=== PATIENT | male | born 1965 | race Caucasian/White ===

== ENCOUNTER → 2016-09-13 | Outpatient (CLI) | payer BC ==
[~2016-09-13] MED LIST: ACET-749 PO; ALFU10TA30 PO; ASPI81TA28 PO; CHOLCAP5 PO; CIPR-255 PO; CLB/200 PO; LEVO150T PO; LISI2.5T5 PO; LPT/40 PO; MULT-506 PO; PHEN-775 PO; RANI150T3 PO; SERT-234 PO; TRVHP PO; VALA500T60 PO
--- NOTE | 2016-09-13 18:40 | DIAGNOSTIC IMAGING REPORT ---
RIGHT SHOULDER MIN 2 VIEWS ROUTINE CLINICAL HISTORY: Right shoulder pain. COMPARISON: None FINDINGS: Alignment of the right shoulder is anatomic. There is no fracture or suspicious lesion. There is mild to moderate arthritis of the right acromioclavicular joint. IMPRESSION: 1. Mild to moderate arthritis of the right acromioclavicular joint. 2. No fracture. Electronically signed by: Conrad Almanzar M.D. 09/13/2016 6:39 PM Dictated Date/Time: 09/13/2016 6:39 PM
--- NOTE | 2016-09-13 19:17 | DIAGNOSTIC IMAGING REPORT ---
C-SPINE ROUTINE 4 OR 5 VIEWS CLINICAL HISTORY: Right shoulder pain. Neck pain with radiculopathy. COMPARISON STUDY: No previous studies for comparison. FINDINGS: There is straightening of the normal cervical lordosis. Vertebral body heights are maintained. There is no fracture or suspicious lesion. There is mild to moderate disc space narrowing at several levels, most pronounced at the C5-C6 and C6-C7 levels. There is mild multilevel facet arthrosis. IMPRESSION: 1. No cervical spine fracture. 2. Moderate multilevel degenerative disc disease and mild multilevel facet arthrosis of the cervical spine. Electronically signed by: Conrad Almanzar M.D. 09/13/2016 7:16 PM Dictated Date/Time: 09/13/2016 7:15 PM
== END | disposition home or self-care (01) ==
LOC: C.RAD 17:57
PROVIDERS: ATTEND Internal Medicine
DX: M25.511 Pain in right shoulder (principal); M54.12 Radiculopathy, cervical region; M50.30 Other cervical disc degeneration, unspecified cervical region; M19.011 Primary osteoarthritis, right shoulder

== ENCOUNTER → 2016-10-04 | Outpatient (CLI) | payer BC ==
--- NOTE | 2016-10-04 09:30 | DIAGNOSTIC IMAGING REPORT ---
ULTRASOUND KIDNEYS AND BLADDER CLINICAL HISTORY: Bladder diverticulum. COMPARISON STUDY: No priors. TECHNIQUE: Real-time, grayscale, and color flow sonography of the kidneys and bladder is performed. Images are reviewed in the transverse and longitudinal planes. FINDINGS: Kidneys: The kidneys are normal in size and echotexture. The right kidney measures 10.6 x 5.5 x 6.1 cm and the left kidney measures 11.4 x 6.6 x 6.3 cm. There is no hydronephrosis. No shadowing renal calculi are identified. Subcentimeter cysts are noted bilaterally. There is no sonographic evidence of solid renal mass. No perinephric fluid is identified. Bladder: The bladder is distended and the wall appears slightly trabeculated. There are at least 2 posteriorly oriented bladder diverticula which measure up to 4 cm. Bilateral ureteral jets were seen. IMPRESSION: 1. The kidneys are normal in size and without hydronephrosis. 2. The bladder wall appears mildly trabeculated and there are at least 2 posteriorly oriented bladder diverticula. The appearance suggests the sequelae of chronic outlet obstruction. Electronically signed by: Wolfgang Martins M.D. 10/04/2016 9:29 AM Dictated Date/Time: 10/04/2016 9:26 AM
== END | disposition home or self-care (01) ==
LOC: C.ULTR 08:50
PROVIDERS: ATTEND Urology
DX: N32.3 Diverticulum of bladder (principal)

== ENCOUNTER → 2016-11-11 | Day surgery (SDC) | payer BC ==
--- NOTE | 2016-11-01 11:40 | DIAGNOSTIC IMAGING REPORT ---
CHEST 2 VIEWS ROUTINE CLINICAL HISTORY: N40.1 Benign prostatic hypertrophy with urinary [id number] PREOPERATIVE CHEST COMPARISON STUDY: No previous studies for comparison. FINDINGS: The heart is borderline enlarged. There is no failure. There is no focal pulmonary consolidation. There are no pleural effusions.[ IMPRESSION: No active disease in the chest. Electronically signed by: Jaguar Guzman M.D. 11/01/2016 11:39 AM Dictated Date/Time: 11/01/2016 11:39 AM
[2016-11-01 12:03] LABS: BASO % 0.2 %; BASO ABS # 0.01 K/uL (0-0.2); COMPLETE YES; EOS % 2.5 %; HEMATOCRIT 40.7 % (42-52); IG% 0.2 %; LYMPH % 24.5 %; LYMPH ABS # 1.49 K/uL (1.2-3.4); MEAN CELL VOLUME 91.7 fL (80-100); MEAN CORPUSCULAR HEMOGLOBIN 30.9 pg (25-34); MEAN CORPUSCULAR HGB CONC 33.7 g/dl (32-36); MEAN PLATELET VOLUME 10.3 fL (7.4-10.4); MONO % 7.7 %; NEUT % 64.9 %; PLATELET COUNT 106 K/uL (130-400); RED BLOOD COUNT 4.44 M/uL (4.7-6.1); WHITE BLOOD COUNT 6.08 K/uL (4.8-10.8)
[2016-11-01 12:36] LABS: BLOOD UREA NITROGEN 16 mg/dl (7-18); BUN/CREATININE RATIO 17.3 (10-20); CALCIUM 8.8 mg/dl (8.5-10.1); CARBON DIOXIDE 31 mmol/L (21-32); CHLORIDE 106 mmol/L (98-107); CREATININE 0.94 mg/dl (0.60-1.40); GLUCOSE 83 mg/dl (70-99); POTASSIUM 4.4 mmol/L (3.5-5.1); SODIUM 143 mmol/L (136-145)
[2016-11-01 16:35] VITALS: BMI 26.0
[~2016-11-11] VITALS: Ht 182.9 cm; Wt 86.4 kg
[~2016-11-11] MED LIST changes: +ACETAMINOPHEN 325 MG TAB PO PRN; +ALFU10TA2 PO; -ALFU10TA30 PO; +ATROPINE SULFATE 0.1 MG/ML 5ML SYR IV PRN; +CHECK SCOPOLAMINE PATCH PLACEMENT SCH; +CIPROFLOXACIN / D5W 400 MG IV SCH; +CONRAY 30% 150ML BOTTLE ONE; +DEXAMETHASONE SOD INJ 4 MG/ML VIAL ONE; +EpHEDrine SULFATE INJ 50 MG/ML AMP IV PRN; +FENTANYL CITRATE INJ 50 MCG/1 ML 2 ML VIAL IV PRN; +FENTANYL CITRATE INJ 50 MCG/1 ML 2 ML VIAL ONE; +HYDROCODONE/ACETAMOPHEN 5/325MG TAB PO PRN; +LACTATED RINGER'S 1000ML 1,000 ML IV SCH; +LIDOCAINE HCL 2% 2 ML VIAL (20MG/ML) ONE; +MIDAZOLAM HCL 1 MG/ML 2ML VIAL ONE; +NURSING VERBAL MED ORDER ONE; +ONDANSETRON INJ 2 MG/ML 2 ML VIAL IV PRN; +ONDANSETRON INJ 2 MG/ML 2 ML VIAL ONE; +PROPOFOL IV EMULSION 10 MG/ML 20 ML VIAL IV ONE; +SCOPOLAMINE 1.5 MG TDSY TD ONE; +SCOPOLAMINE 1.5 MG TDSY TD SCH; +SODIUM CHLORIDE 0.9% 1000ML 1,000 ML IV SCH
[2016-11-11 05:35] VITALS: BP 127/87; PULSE 57; TEMP 36.6; O2SAT 96; Ht 182.9 cm; Wt 86.4 kg
--- NOTE | 2016-11-11 06:57 | History & Physical Bridge Note ---
H&P Re-Evaluation Bridge Note: I have examined the patient, reviewed the History & Physical and in the interval since the performance of the History & Physical I have noted the following changes of clinical significance: No changes noted
--- NOTE | 2016-11-11 07:49 | [facility] Post Operative Brief Note ---
Immediate Operative Summary Operative Date Nov 11, 2016. Pre-Operative Diagnosis Bladder Stones, Diverticulum of Bladder, Benign Prostatic Hypertrophy Post-Operative Diagnosis Bladder Stones, Diverticulum of Bladder, Benign Prostatic Hypertrophy Procedure(s) Performed Cystoscopy, Transuretheral Incision of Prostate, Cystolithopaxy Surgeon Dr. Piña [employer] Surgeon(s) none Estimated Blood Loss 5 cc Findings Very high bladder neck; diverticulum on the posterior wall of the bladder. Relatively large stone within the diverticulum (extracted). Incisions of the bladder neck at 5 and 7 O'Clock. Vaporization of the tissue between the incisions and slight vaporization of the apical tissue. Specimens A: Bladder stone for chemical analysis Drains 20F coude Anesthesia Gen Complication(s) None Disposition Recovery Room / PACU (stable)
--- NOTE | 2016-11-11 07:55 | Discharge Instructions ---
Discharge Instructions Date of Service Nov 11, 2016. Admission Reason for Admission: Bladder Stones, Benign Prostatic Hypertrophy Discharge Discharge Diagnosis / Problem: Bladder stones; diverticulum; BPH Discharge Goals Goal(s): Decrease discomfort, Improve function, Increase independence, Improve disease control Activity Recommendations Activity Limitations: resume your previous activity Lifting Limitations: none Exercise/Sports Limitations: none May Resume Sexual Activity: when tolerated Shower/Bathe: no limitations Driving or Machine Use: no limitations (as long as you are off of pain meds) . Instructions / Follow-Up Instructions / Follow-Up You have an appointment to have your catheter removed on Monday in Dr. Piña' s office. If you would rather, you can remove your catheter at home tomorrow morning. The easiest way to do this is to cut off the small port that sticks off of the side of the catheter (the area not attached to the bag). You should see some clear water drain from this. When there is no further drainage, you can gently pull the catheter straight out. If you elect to remove your catheter, please drink significant amounts of water. It is not unusual to have to urine frequently and in small volumes after this catheter is removed. It is also quite common to see blood in your urine. Discharge Diet Recommended Diet: Regular Diet Procedures Procedures Performed: Cystoscopy, Transuretheral Incision of Prostate, Cystolithopaxy Pending Studies Studies pending at discharge: no Medical Emergencies . Who to Call and When: Medical Emergencies: If at any time you feel your situation is an emergency, please call 911 immediately. . Non-Emergent Contact Non-Emergency issues call your: Urologist Call Non-Emergent contact if: you have a fever, temperature is above 101.5, your pain is not controlled, your pain is worsening . . "Provider Documentation" section prepared by Anibal Brown. VTE Core Measure Inpt VTE Proph given/why not?: Treatment not indicated [place] Drug Monitoring Program Search Results: patient reviewed within database, no issues identified
--- NOTE | 2016-11-11 08:18 | Anesthesiology Progress Note ---
Anesthesia Post Op Note Date & Time Nov 11, 2016 at 08:17 Vital Signs Pain Intensity: 0 Vital Signs Past 12 Hours Date Time Temp Pulse Resp B/P Pulse Ox O2 Delivery O2 Flow Rate FiO2 11/11/16 08:05 56 17 100/80 97 Mask 10 11/11/16 07:55 54 12 108/73 98 Mask 10 11/11/16 07:46 36.1 56 14 104/64 97 Mask 10 11/11/16 05:35 36.6 57 18 127/87 96 Room Air Notes Mental Status: alert / awake / arousable, participated in evaluation Pt Amnestic to Procedure: Yes Nausea / Vomiting: adequately controlled Pain: adequately controlled Airway Patency, RR, SpO2: stable & adequate BP & HR: stable & adequate Hydration State: stable & adequate Anesthetic Complications: no major complications apparent
--- NOTE | 2016-11-11 08:25 | OPERATIVE REPORT ---
DATE OF OPERATION: 11/11/2016 PREOPERATIVE DIAGNOSES: Benign prostatic hypertrophy, bladder stones, and bladder diverticula. POSTOPERATIVE DIAGNOSES: Same. PROCEDURES PERFORMED: Cystoscopy, cystolitholapaxy, transurethral incision and resection of prostate. ANESTHESIA: General. ESTIMATED BLOOD LOSS: 5 mL. URINE OUTPUT: Not recorded. SPECIMENS: Stone for chemical analysis. DRAINS: 20-[place] Coude catheter. DESCRIPTION OF THE PROCEDURE: Nain Regalado was identified in the preoperative holding area. Appropriate informed consents reviewed and completed and the patient was transported to the operating suite. Upon arrival, he received appropriate preoperative antibiotics in the form of ciprofloxacin. Adequate general anesthesia was achieved and the patient was placed in dorsal lithotomy position, where he was sterilely prepped and draped in standard fashion. I began the case by passing a 27-[place] resectoscope with visual obturator and 30 degree lens. Inspection of the urethra revealed no evidence of stricture disease. Prostate was notably enlarged with a very high bladder neck. Additionally, he had significant lateral lobe hypertrophy, but no significant intravesical lobe. Full inspection of the bladder was carried out. There was a large bladder with moderate trabeculation and a very narrow mouth diverticulum on the posterior wall just to the patient's left of midline. Inspection internally of this diverticulum revealed 2-3 stones within the tic itself. Small stones were easily irrigated out of the diverticulum; however, the large stone would not be able to be irrigated through the scope. After inspecting the remaining part of the bladder and irrigating another small stone, I exchanged the visual obturator for a stone grasping forceps and I was able to gently guide this into the diverticulum and grasped the stone and withdrawn into the bladder. I then was able to reorient it and withdrawn. The stone was passed off the table as a specimen. I then reentered the bladder with a resecting element including the button electrode. I performed an excision of the bladder neck at 5 o'clock and 7 o'clock, which significantly dropped the bladder neck down. He still had significant lateral lobe hypertrophy including a very tight apical dissection of the prostate. I gently opened the apical aspect of the prostate and tried to avoid excess resection of the bladder neck. I did slightly flatten the bladder neck between my 2 incisions to allow easy accommodation of the scope and in turn likely easier voiding. At the conclusion of the case, there was excellent hemostasis. A 20-[place] straight catheter was inserted; however, I believe it was directed directly into the diverticulum. I therefore exchanged this for a Coude catheter, which I felt more comfortable I could deviate away from the diverticulum. The balloon was inflated and the case concluded. The patient was extubated and taken to the PACU in stable condition. I attest to the content of the Intraoperative Record and any orders documented therein. Any exceptions are noted below. ELIZABETHD
[2016-11-11 08:38] VITALS: BP 115/83; PULSE 60; TEMP 36.4; O2SAT 97
[2016-11-11 09:04] VITALS: BP 128/83; PULSE 56; TEMP 36.7; O2SAT 96
[2016-11-11 09:31] VITALS: BP 125/89; PULSE 58; TEMP 36.4; O2SAT 96
== END | disposition home or self-care (01) ==
LOC: C.ACU 05:26
PROVIDERS: ATTEND Urology
DX: N21.0 Calculus in bladder (principal); N40.1 Benign prostatic hyperplasia with lower urinary tract symptoms; N13.8 Other obstructive and reflux uropathy; N32.3 Diverticulum of bladder; R33.9 Retention of urine, unspecified; M19.90 Unspecified osteoarthritis, unspecified site; E11.9 Type 2 diabetes mellitus without complications; N45.1 Epididymitis; E78.00 Pure hypercholesterolemia, unspecified; I10 Essential (primary) hypertension; Z83.3 Family history of diabetes mellitus; Z80.42 Family history of malignant neoplasm of prostate; Z82.49 Family history of ischemic heart disease and other diseases of the circulatory system

== ENCOUNTER → 2016-12-16 | Outpatient (CLI) | payer BC ==
[~2016-12-16] MED LIST changes: -ACETAMINOPHEN 325 MG TAB PO PRN; -ATROPINE SULFATE 0.1 MG/ML 5ML SYR IV PRN; -CHECK SCOPOLAMINE PATCH PLACEMENT SCH; -CIPROFLOXACIN / D5W 400 MG IV SCH; -CONRAY 30% 150ML BOTTLE ONE; -DEXAMETHASONE SOD INJ 4 MG/ML VIAL ONE; -EpHEDrine SULFATE INJ 50 MG/ML AMP IV PRN; -FENTANYL CITRATE INJ 50 MCG/1 ML 2 ML VIAL IV PRN; -FENTANYL CITRATE INJ 50 MCG/1 ML 2 ML VIAL ONE; -HYDROCODONE/ACETAMOPHEN 5/325MG TAB PO PRN; -LACTATED RINGER'S 1000ML 1,000 ML IV SCH; -LIDOCAINE HCL 2% 2 ML VIAL (20MG/ML) ONE; -MIDAZOLAM HCL 1 MG/ML 2ML VIAL ONE; -NURSING VERBAL MED ORDER ONE; -ONDANSETRON INJ 2 MG/ML 2 ML VIAL IV PRN; -ONDANSETRON INJ 2 MG/ML 2 ML VIAL ONE; -PHEN-775 PO; -PROPOFOL IV EMULSION 10 MG/ML 20 ML VIAL IV ONE; -SCOPOLAMINE 1.5 MG TDSY TD ONE; -SCOPOLAMINE 1.5 MG TDSY TD SCH; -SODIUM CHLORIDE 0.9% 1000ML 1,000 ML IV SCH
[2016-12-16 09:44] LABS: ALT/SGPT 48 U/L (12-78); AST/SGOT 39 U/L (15-37); BLOOD UREA NITROGEN 28 mg/dl (7-18); BUN/CREATININE RATIO 22.9 (10-20); CALCIUM 8.6 mg/dl (8.5-10.1); CARBON DIOXIDE 28 mmol/L (21-32); CHLORIDE 105 mmol/L (98-107); CHOLESTEROL 136 mg/dl (0-200); GLUCOSE 92 mg/dl (70-99); POTASSIUM 3.9 mmol/L (3.5-5.1); SODIUM 140 mmol/L (136-145)
[2016-12-16 09:55] LABS: ALB/GLOB RATIO 1.5 (0.9-2); ALKALINE PHOSPHATASE 86 U/L (45-117); CHOLESTEROL/HDL RATIO 3.8; HDL CHOLESTEROL 36 mg/dl; LDL CHOLESTEROL CALCULATED 68 mg/dl; TRIGLYCERIDES 158 mg/dl (0-150); VERY LOW DENSITY LIPOPROT CALC 32 mg/dl
== END | disposition home or self-care (01) ==
LOC: C.LAB 07:18
PROVIDERS: ATTEND Internal Medicine
DX: I10 Essential (primary) hypertension (principal); E78.5 Hyperlipidemia, unspecified; E03.9 Hypothyroidism, unspecified

== ENCOUNTER → 2016-12-28 | Outpatient (CLI) | payer BC | END | disposition home or self-care (01) | LOC: C.LAB 16:49 | PROVIDERS: ATTEND Nurse Practitioner Adult Health | DX: R35.0 Frequency of micturition (principal) ==

== ENCOUNTER → 2017-05-15 | Outpatient (CLI) | payer BC ==
[~2017-05-15] MED LIST changes: -ACET-749 PO; -ALFU10TA2 PO; +ALFU10TA30 PO
[2017-05-15 19:45] LABS: ALT/SGPT 40 U/L (12-78); BLOOD UREA NITROGEN 18 mg/dl (7-18); BUN/CREATININE RATIO 17.8 (10-20); CALCIUM 8.8 mg/dl (8.5-10.1); CARBON DIOXIDE 26 mmol/L (21-32); CHLORIDE 106 mmol/L (98-107); CREATININE 1.03 mg/dl (0.60-1.40); GLUCOSE 87 mg/dl (70-99); POTASSIUM 3.8 mmol/L (3.5-5.1); SODIUM 140 mmol/L (136-145)
[2017-05-15 19:56] LABS: ALB/GLOB RATIO 1.2 (0.9-2); ALKALINE PHOSPHATASE 78 U/L (45-117); AST/SGOT 37 U/L (15-37); THYROID STIMULATING HORMONE 0.222 uIu/ml (0.300-4.500)
== END | disposition home or self-care (01) ==
LOC: C.LAB 18:59
PROVIDERS: ATTEND Internal Medicine
DX: E03.9 Hypothyroidism, unspecified (principal); I10 Essential (primary) hypertension; E78.5 Hyperlipidemia, unspecified

== ENCOUNTER → 2017-12-08 | Outpatient (CLI) | payer BC ==
[~2017-12-08] MED LIST changes: +ALFU10TA2 PO; -ALFU10TA30 PO; +LISI-1116 PO; -LISI2.5T5 PO
[2017-12-08 14:39] LABS: HEMATOCRIT 43.1 % (42-52); HEMOGLOBIN 14.5 g/dL (14.0-18.0); MEAN CELL VOLUME 92.1 fL (80-100); MEAN CORPUSCULAR HGB CONC 33.6 g/dl (32-36); MEAN PLATELET VOLUME 9.9 fL (7.4-10.4); PLATELET COUNT 138 K/uL (130-400); RED CELL DISTRIBUTION WIDTH CV 13.5 % (11.5-14.5); RED CELL DISTRIBUTION WIDTH SD 45.3 fL (36.4-46.3); WHITE BLOOD COUNT 5.84 K/uL (4.8-10.8)
[2017-12-08 14:54] LABS: ALBUMIN 3.8 gm/dl (3.4-5.0); ALT/SGPT 35 U/L (12-78); AST/SGOT 25 U/L (15-37); BLOOD UREA NITROGEN 14 mg/dl (7-18); CALCIUM 8.6 mg/dl (8.5-10.1); CARBON DIOXIDE 31 mmol/L (21-32); CREATININE 0.99 mg/dl (0.60-1.40); GLUCOSE 82 mg/dl (70-99); POTASSIUM 4.3 mmol/L (3.5-5.1); SODIUM 140 mmol/L (136-145)
[2017-12-08 15:02] LABS: ALKALINE PHOSPHATASE 76 U/L (45-117); CHOLESTEROL 112 mg/dl (0-200); LDL CHOLESTEROL CALCULATED 41 mg/dl
== END | disposition home or self-care (01) ==
LOC: C.LAB 12:59
PROVIDERS: ATTEND Internal Medicine
DX: E78.5 Hyperlipidemia, unspecified (principal); E03.9 Hypothyroidism, unspecified; E55.9 Vitamin D deficiency, unspecified; N40.1 Benign prostatic hyperplasia with lower urinary tract symptoms; K21.9 Gastro-esophageal reflux disease without esophagitis

== ENCOUNTER → 2018-03-05 | Outpatient (CLI) | payer BC ==
[~2018-03-05] MED LIST changes: -ALFU10TA2 PO; +ASPCH81X PO; -ASPI81TA28 PO; +BUPR-79 PO; +CHOL1TAB46 PO; -CHOLCAP5 PO; -CIPR-255 PO; -CLB/200 PO; +ESCI10TA17 PO; -LEVO150T PO; +LEVO175T3 PO; -LISI-1116 PO; +LISI-461 PO; -LPT/40 PO; +MISCCAP80 PO; -MULT-506 PO; -RANI150T3 PO; +RANI150T85 PO; +ROSU40TA PO; -SERT-234 PO; +TADALAFIL PO
[2018-03-05 19:53] LABS: ALBUMIN 3.7 gm/dl (3.4-5.0); ALKALINE PHOSPHATASE 96 U/L (45-117); ALT/SGPT 41 U/L (12-78); AST/SGOT 34 U/L (15-37); BLOOD UREA NITROGEN 15 mg/dl (7-18); CALCIUM 8.2 mg/dl (8.5-10.1); CARBON DIOXIDE 31 mmol/L (21-32); CREATININE 1.15 mg/dl (0.60-1.40); POTASSIUM 4.1 mmol/L (3.5-5.1); SODIUM 140 mmol/L (136-145); TOTAL PROTEIN 7.1 gm/dl (6.4-8.2)
[2018-03-05 19:54] LABS: GLUCOSE 95 mg/dl (70-99)
== END | disposition home or self-care (01) ==
LOC: C.LAB 19:06
PROVIDERS: ATTEND Internal Medicine
DX: E03.9 Hypothyroidism, unspecified (principal); E55.9 Vitamin D deficiency, unspecified; I10 Essential (primary) hypertension; E78.5 Hyperlipidemia, unspecified

== ENCOUNTER → 2018-03-12 | Outpatient (CLI) | payer BC ==
--- NOTE | 2018-03-12 14:42 | DIAGNOSTIC IMAGING REPORT ---
CHEST 2 VIEWS ROUTINE CLINICAL HISTORY: COUGH,WHEEZING dyspnea COMPARISON STUDY: 11/01/2016 FINDINGS: The bones soft tissues and hemidiaphragms are normal. The cardiomediastinal silhouette is normal. The lungs are clear. The pulmonary vasculature is normal. IMPRESSION: Negative chest. The above report was generated using voice recognition software. It may contain grammatical, syntax or spelling errors. Electronically signed by: Lenin Cotter M.D. 03/12/2018 2:41 PM Dictated Date/Time: 03/12/2018 2:41 PM
== END | disposition home or self-care (01) ==
LOC: C.RAD 14:19
PROVIDERS: ATTEND Internal Medicine
DX: R05 Cough (principal); R06.2 Wheezing; R07.1 Chest pain on breathing

== ENCOUNTER 2024-02-08 07:38 | Observation (INO) ==
--- NOTE | 2024-02-08 07:57 | Emergency Department Note ---
Impression & Plan TIA (transient ischemic attack), HTN (hypertension), Paresthesias, High serum chloride ED Provider Note NAME: DIMA BAPTISTE AGE: 58 SEX: M : 1965 ARRIVES VIA: Walk-In INFORMANT: Patient ED PROVIDER(S): Domenico Lew DO CHIEF COMPLAINT: HTN HPI: Patient is a 58-year-old male with a past medical history of diabetes, hypertension and hyperlipidemia who presents to the ER for left facial numbness and left arm numbness. This occurred earlier in the week and lasted for about 2 to 3 hours. He was seen evaluated and discharged from the ER at [facility]. It recurred this morning and has been present for over an hour. He denies any weakness that is noticeable. No change or loss in vision. No chest pain or shortness of breath. No nausea, vomiting, or diarrhea. No dysuria, urgency or frequency. Does have an extensive family history of MIs. No previous strokes. No other exacerbating or remitting factors. He was seen and evaluated by his PCP who does believe that he had a TIA as well and is attempting to get the outpatient workup including MRI. ADDITIONAL HISTORY OBTAINED: Per HPI Chronic Medical/Social Conditions Affecting Care: Per HPI PAST MEDICAL HISTORY:See Below PAST SURGICAL HISTORY:See Below FAMILY HISTORY:See Below SOCIAL HISTORY:See Below HOME MEDICATIONS:See Below ALLERGIES:See Below VITALS:See Below PHYSICAL EXAMINATION: GENERAL: Sitting up in bed, alert, well appearing, well nourished, no distress, non-toxic EYE EXAM: normal conjunctiva. PERRL and EOM's intact. OROPHARYNX: mucous membranes are moist LUNGS: Clear to auscultation. Normal chest wall mechanics HEART: no murmurs, S1 normal and S2 normal ABDOMEN: abdomen soft, non-tender, normo-active bowel sounds, no masses, no rebound or guarding. UPPER EXTREMITIES: upper extremities are grossly normal. LOWER EXTREMITIES: No pitting edema. NEURO EXAM: Normal sensorium, cranial nerves II-XII intact, normal speech, no weakness of arms, no weakness of legs. No drift. Finger to nose intact. Gross sensation intact. [id number] intact. Rapid alternating movements of upper extremities are intact. MEDICAL DECISION MAKING: Patient is a 58-year-old male who presents ER for above-stated complaint. IV was established blood work is obtained. Patient has extensive vascular risk factors including hypertension, hyperlipidemia and diabetes. Strong family history of [place] as well in the setting of paresthesias in the left side of his face and hand. Labs show no significant leukocytosis or anemia. INR unremarkable. BMP with slightly elevated chloride. Bilirubin mag and troponin were negative. He is completely neurologically intact with the exception of the subjective paresthesias. CT angios of the head and neck were negative. I discussed the case with hospitalist for further evaluation management and treatment with his current presentation and risk factors do feel it is prudent to work this up more at this time. Discussed with the hospitalist and patient was admitted for further workup. Stroke alert was not called as patient had no focal deficit and was not a tPA candidate. Consults/Care Managements Discussions: Per [facility] Triage Nursing notes reviewed. Limited review of prior medical records performed Vital Signs: reviewed and remarkable for HTN Differential diagnosis: Differential Diagnosis includes but is not limited to ischemic Stroke, hemorrhagic stroke, bells palsy, mass, neoplasm, migraine headache, seizure, subarachnoid hemorrhage, TIA, and transient global amnesia. ER treatment provided: See below Diagnostics interpreted by me include EKG and cardiac monitoring as listed below: -Cardiac Monitoring: An order was placed for continuous cardiac monitoring. The monitor shows a rate of 60 with sinus rhythm. -ECG: Sinus rhythm at 65 Normal axis No PVCs QTc 445 -Laboratory studies:Interpreted by me as stated above in MDM and shown below. Imaging studies: Xrays: As interpreted by me:none CTs show: CT of the head per my preliminary interpretation showed no obvious large bleed CT angio of the head and neck were negative Procedures:none Critical Care: None Past Med/Surg History Problem List (Updated 02/08/24 @ 13:28 by Domenico Lew DO) High serum chloride (Acute) Paresthesias (Acute) HTN (hypertension) (Acute) TIA (transient ischemic attack) (Acute) Left upper extremity numbness (Acute) Facial numbness (Acute) Hypertension (Acute) History of bladder stone (Acute) Hypercholesterolemia (Acute) Organic impotence (Acute) History of urinary frequency (Acute) Encounter for pre-operative examination Priapism, drug-induced (Acute) Sexual dysfunction Incontinence Medical History (Updated 02/08/24 @ 13:28 by Domenico Lew DO) Abdominal pain Diverticulitis of colon with perforation Encounter for pre-operative examination Diverticulitis of both large and small intestine with perforation Arthritis Benign localized hyperplasia of prostate with urinary obstruction Diabetes mellitus Diverticulum of bladder Epididymitis Hypothyroidism BPH (benign prostatic hyperplasia) Urinary incontinence Diabetes mellitus, type 2 oral meds discontinued after weight loss; diet controlled Chronic back pain GERD (gastroesophageal reflux disease) Depression Anxiety Hyperlipidemia Hypertension Surgical History History of esophagogastroduodenoscopy (EGD) History of colonoscopy History of cardiac cath 2008-NO STENTS NEEDED-NO CARDIOLOGY History of carpal tunnel release R/L H/O foot surgery RIGHT SPUR H/O eye surgery MUSCLE History of cystoscopy multiple; cysto, injection of urethral bulking agent: 01/01/19: MAC sedation at [facility] Family History Sister Family history of diabetes mellitus Brother Family history of diabetes mellitus Other Diabetes mellitus, type 2 Social History Smoking Status: Never smoker Cigarettes Per Day: 0; Second Hand Exposure: No; Do You Dip or Chew Tobacco: No; Hx Alcohol Use: No Hx Substance Use: No Preferred Language: Malagasy Communication Ability: Effective Visual Impairment: No Limitations Karate Black Belt Required: No Beliefs That Will Affect Care: Cultural Current Living Situation: Alone Feels Safe at Home: Yes Assistive Devices: None Allergies Allergies Allergy/AdvReac Type Severity Reaction Status Date / Time No Known Allergies Allergy Verified 02/08/24 09:24 Home Meds Home Medications Medication Instructions Recorded Confirmed levothyroxine 175 mcg tablet 175 mcg PO QAM 09/20/18 02/08/24 rosuvastatin 40 mg tablet 40 mg PO QPM 09/20/18 02/08/24 valacyclovir 500 mg tablet 500 mg PO QPM 09/20/18 02/08/24 (Valtrex) vortioxetine 5 mg tablet 5 mg PO QAM 06/21/19 02/08/24 (Trintellix) emtricitabine 200 mg-tenofovir 1 tab PO QPM 09/18/20 02/08/24 alafenamide fumarate 25 mg tablet (Descovy) omeprazole 20 mg capsule,delayed 20 mg PO DAILYBB 09/18/20 02/08/24 release cholecalciferol (vitamin D3) 125 10,000 unit PO QPM 04/25/22 02/08/24 mcg (5,000 unit) tablet (Vitamin D3) escitalopram oxalate 20 mg tablet 20 mg PO QAM 10/31/22 02/08/24 (Lexapro) losartan 100 mg tablet 100 mg PO QAM 01/31/23 02/08/24 trazodone 50 mg tablet 50 mg PO HS 12/22/23 02/08/24 aspirin 81 mg tablet,delayed 81 mg PO HS 02/08/24 02/08/24 release metoprolol succinate 25 mg 25 mg PO 02/08/24 02/08/24 tablet,extended release 24 hr Results & Data (ED) Vital Signs Vital Signs - 24 hr 02/08/24 07:41 02/08/24 07:52 02/08/24 07:52 Temperature 36.8 C Temperature Source Temporal Artery Scan Pulse Rate 56 L Pulse Rate from SpO2 Sensor Respiratory Rate 18 Respiratory Effort / Characteristics Non-Labored Spontaneous Respiratory Depth Normal Respiratory Pattern Regular Blood Pressure 161/90 H 159/98 H 159/98 H Blood Pressure Mean 113 114 114 Blood Pressure Position Sitting Pulse Oximetry 99 Oxygen Delivery Method Room Air Sepsis Recent Fever Within 48 Hours No Sepsis New/Unexplained Change in Mental Status No Sepsis Action Taken by Nursing No Action Required 02/08/24 07:54 02/08/24 08:00 02/08/24 08:30 Temperature Temperature Source Pulse Rate 60 63 Pulse Rate from SpO2 Sensor 60 64 Respiratory Rate 23 18 Respiratory Effort / Characteristics Respiratory Depth Respiratory Pattern Blood Pressure 156/101 H Blood Pressure Mean 117 Blood Pressure Position Pulse Oximetry 99 98 Oxygen Delivery Method Sepsis Recent Fever Within 48 Hours Sepsis New/Unexplained Change in Mental Status Sepsis Action Taken by Nursing 02/08/24 08:30 02/08/24 08:30 02/08/24 08:30 Temperature Temperature Source Pulse Rate 60 Pulse Rate from SpO2 Sensor 59 L Respiratory Rate 21 Respiratory Effort / Characteristics Respiratory Depth Respiratory Pattern Blood Pressure 156/101 H 156/101 H Blood Pressure Mean 117 117 Blood Pressure Position Pulse Oximetry 97 Oxygen Delivery Method Sepsis Recent Fever Within 48 Hours Sepsis New/Unexplained Change in Mental Status Sepsis Action Taken by Nursing 02/08/24 08:57 02/08/24 09:02 02/08/24 09:02 Temperature Temperature Source Pulse Rate 95 H Pulse Rate from SpO2 Sensor 61 Respiratory Rate 20 Respiratory Effort / Characteristics Respiratory Depth Respiratory Pattern Blood Pressure 137/97 137/97 Blood Pressure Mean 101 101 Blood Pressure Position Pulse Oximetry 95 Oxygen Delivery Method Sepsis Recent Fever Within 48 Hours Sepsis New/Unexplained Change in Mental Status Sepsis Action Taken by Nursing 02/08/24 09:03 02/08/24 09:23 02/08/24 09:30 Temperature Temperature Source Pulse Rate 63 65 59 L Pulse Rate from SpO2 Sensor 63 59 L Respiratory Rate 23 20 Respiratory Effort / Characteristics Respiratory Depth Respiratory Pattern Blood Pressure Blood Pressure Mean Blood Pressure Position Pulse Oximetry 95 94 Oxygen Delivery Method Sepsis Recent Fever Within 48 Hours Sepsis New/Unexplained Change in Mental Status Sepsis Action Taken by Nursing 02/08/24 09:30 Temperature Temperature Source Pulse Rate Pulse Rate from SpO2 Sensor Respiratory Rate Respiratory Effort / Characteristics Respiratory Depth Respiratory Pattern Blood Pressure 135/90 Blood Pressure Mean 101 Blood Pressure Position Pulse Oximetry Oxygen Delivery Method Sepsis Recent Fever Within 48 Hours Sepsis New/Unexplained Change in Mental Status Sepsis Action Taken by Nursing Laboratory Data 02/08/24 08:01 02/08/24 08:01 Lab Results 02/08/24 Range/Units 08:01 WBC 4.86 (4.8-10.8) K/ul RBC 4.90 (4.70-6.10) M/uL Hgb 14.6 (14.0-18.0) g/dl Hct 44.4 (42.0-52.0) % MCV 90.6 (80.0-100.0) fL MCH 29.8 (25.0-34.0) pg MCHC 32.9 (32.0-36.0) g/dL RDW Std Deviation 44.9 (36.4-46.3) fL RDW Coeff of Alicia 13.7 (11.5-14.5) % Plt Count 155 (130-400) K/uL MPV 9.8 (9.4-12.4) fL Immature Gran % (Auto) 0.6 % Neut % (Auto) 60.5 % Lymph % (Auto) 27.0 % Bradford % (Auto) 8.6 % Eos % (Auto) 2.7 % Baso % (Auto) 0.6 % Neut # (Auto) 2.94 (1.40-6.50) K/uL Lymph # (Auto) 1.31 (1.20-3.40) K/uL Bradford # (Auto) 0.42 (0.11-0.59) K/uL Eos # (Auto) 0.13 (0.00-0.50) K/uL Baso # (Auto) 0.03 (0.00-0.20) K/uL Immature Gran # (Auto) 0.03 (0.01-0.20) K/uL PT 10.8 (9.0-12.0) Seconds INR 1.0 (0.9-1.1) APTT 27 (21-31) Seconds PTT Ratio 1.0 Sodium 141 (136-145) mmol/L Potassium 4.0 (3.5-5.1) mmol/L Chloride 108 H (98-107) mmol/L Carbon Dioxide 27 (21-32) mmol/L Anion Gap 6 (3-11) BUN 15 (6-23) mg/dl Creatinine 1.15 (0.6-1.4) mg/dl Est Cr Clr Drug Dosing 82.7 ml/min Est GFR ( Amer) 80.9 ml/min Est GFR (Non-Af Amer) 69.8 ml/min BUN/Creatinine Ratio 13.0 (10-20) Glucose 115 H (70-99(Fasting)) mg/dl Calcium 8.6 (8.6-10.3) mg/dl Magnesium 2.0 (1.7-2.4) mg/dl Total Bilirubin 0.7 (0.2-1.0) mg/dl AST 70 H (13-39) U/L ALT 67 H (7-52) U/L Alkaline Phosphatase 65 (34-104) U/L Troponin I High Sens 3.9 (0-20) pg/ml Total Protein 6.7 (6.0-8.3) gm/dl Albumin 4.1 (3.4-5.0) gm/dl Globulin 2.6 (2.5-4.0) gm/dl Albumin/Globulin Ratio 1.6 (0.9-2) Administered Medications Discontinued Medications Clopidogrel Bisulfate (Clopidogrel Bisulfate 75 Mg Tab) 75 mg PO NOW ONE Stop: 02/08/24 12:07 Last Admin: 02/08/24 13:08 Dose: 75 mg Documented By: DAREN Ioversol (Optiray 320 125ml) 120 ml IV ONCE ONE Stop: 02/08/24 08:25 Last Admin: 02/08/24 08:19 Dose: 120 ml Documented By: ADIEL Lorazepam (Lorazepam 0.5 Mg Tab) 0.5 mg PO NOW STA Stop: 02/08/24 10:29 Last Admin: 02/08/24 11:30 Dose: 0.5 mg Documented By: ARS Imaging Data Radiologist's Impression: Head CT 02/08/24 07:52 CT angio head w con, CT head/brain wo con CLINICAL HISTORY: 58 years-old Male with neuro deficit, acute stroke suspected. Acute stroke like symptoms COMPARISON STUDY: CTA neck of same day, head CT 01/31/2023 TECHNIQUE: Unenhanced axial CT scan of the brain is performed. Subsequently, following the IV administration of 120 cc of Optiray, CT angiogram of the brain was performed from the skull base to the vertex. Images are reviewed in the axial, sagittal, and coronal planes. 3-D MIPS images are created and assessed. IV contrast was administered without complication. All measurements were obtained according to NASCET criteria. A dose lowering technique was utilized adhering to the principles of ALARA. CT DOSE: 931.85 mGy.cm FINDINGS: CT BRAIN: There is no acute intracranial hemorrhage, midline shift, hydrocephalus, intracranial mass, territorial ischemia or abnormal extra-axial collections. No abnormal intra-axial or extra-axial enhancement. Mastoid air cells and middle ear cavities are clear. No calvarial fracture. Polypoid mucosal thickening of the maxillary sinuses. CT ANGIOGRAM OF THE BRAIN: The imaged bilateral internal carotid arteries are patent. The bilateral anterior and middle cerebral arteries are also patent. Developmentally diminutive right vertebral artery terminating into the high gut. Dominant left vertebral artery is patent and unremarkable. Patent posterior cerebral arteries. There is no aneurysm, high-grade stenosis, or proximal branch occlusion identified. Dural sinuses appear patent. IMPRESSION: 1. No acute intracranial abnormality. 2. Unremarkable CTA of the head. ACT 112: Negative or not required by law. The above report was generated using voice recognition software. It may contain grammatical, syntax or spelling errors. Electronically signed by: Janak Mederos M.D. 02/08/2024 9:04 AM Head CTA 02/08/24 07:52 CT angio head w con, CT head/brain wo con CLINICAL HISTORY: 58 years-old Male with neuro deficit, acute stroke suspected. Acute stroke like symptoms COMPARISON STUDY: CTA neck of same day, head CT 01/31/2023 TECHNIQUE: Unenhanced axial CT scan of the brain is performed. Subsequently, following the IV administration of 120 cc of Optiray, CT angiogram of the brain was performed from the skull base to the vertex. Images are reviewed in the axial, sagittal, and coronal planes. 3-D MIPS images are created and assessed. IV contrast was administered without complication. All measurements were obtained according to NASCET criteria. A dose lowering technique was utilized adhering to the principles of ALARA. CT DOSE: 931.85 mGy.cm FINDINGS: CT BRAIN: There is no acute intracranial hemorrhage, midline shift, hydrocephalus, intracranial mass, territorial ischemia or abnormal extra-axial collections. No abnormal intra-axial or extra-axial enhancement. Mastoid air cells and middle ear cavities are clear. No calvarial fracture. Polypoid mucosal thickening of the maxillary sinuses. CT ANGIOGRAM OF THE BRAIN: The imaged bilateral internal carotid arteries are patent. The bilateral anterior and middle cerebral arteries are also patent. Developmentally diminutive right vertebral artery terminating into the high gut. Dominant left vertebral artery is patent and unremarkable. Patent posterior cerebral arteries. There is no aneurysm, high-grade stenosis, or proximal branch occlusion identified. Dural sinuses appear patent. IMPRESSION: 1. No acute intracranial abnormality. 2. Unremarkable CTA of the head. ACT 112: Negative or not required by law. The above report was generated using voice recognition software. It may contain grammatical, syntax or spelling errors. Electronically signed by: Janak Mederos M.D. 02/08/2024 9:04 AM Neck CTA 02/08/24 07:52 CT ANGIOGRAM OF THE NECK CLINICAL HISTORY: Neurological deficit. Stroke like symptoms. COMPARISON STUDY: No priors. TECHNIQUE: Following the IV administration of 120 of Optiray 320, CT angiogram of the neck was performed from the aortic arch to the skull base. Images are reviewed in the axial, sagittal, and coronal planes. 3-D MIPS images are created and assessed. IV contrast was administered without complication. All measurements were calculated based on NASCET criteria. A dose lowering technique was utilized adhering to the principles of ALARA. FINDINGS: Thoracic aorta: Visualized portions of the thoracic aorta are normal in caliber. The aortic arch demonstrates standard 3-vessel anatomy. Right carotid arterial system: The right common carotid artery is widely patent, as are the right internal and external carotid arteries. Left carotid arterial system: The left common carotid artery is widely patent, as are the left internal and external carotid arteries. Mild calcified plaque is seen in the carotid bulb. Vertebral arteries: The left vertebral artery is dominant and widely patent. The right vertebral artery is diminutive and terminates as the PICA. Subclavian arteries: Widely patent bilaterally. Intracranial vasculature: The visualized intracranial vessels at the skull base appear patent. Atherosclerotic calcification is seen in the carotid bulbs. Jugular veins: Patent bilaterally. Brain parenchyma: The visualized brain parenchyma the skull base is within normal limits. Lung apices: Partially visualized upper lobe lung parenchyma appears clear. Soft tissues: The visualized pharyngeal soft tissues are normal in appearance noting angiographic phase technique. The oropharyngeal airway appears widely patent. The thyroid gland is mildly atrophic. The salivary glands are normal in appearance. No cervical lymphadenopathy is seen. Skeletal structures: The visualized calvarium at the skull base appears intact. The imaged cervical spine is within normal limits. Sinuses and mastoids: There is mild mucosal thickening in the maxillary antra. A 1.3 cm retention cyst is seen on the left. There is a large left mastoid effusion. The right mastoid air cells are well pneumatized. IMPRESSION: Unremarkable CT angiogram of the neck. ACT 112: Negative or not required by law. Electronically signed by: Wolfgang Martins M.D. 02/08/2024 8:51 AM Discharge Plan Visit Data Chief Complaint: Neuro Symptoms/Deficit Stated Complaint: LEFT SIDE FACIAL NUMBNESS ED Provider: Domenico Lew Discharge Problem: TIA (transient ischemic attack), HTN (hypertension), Paresthesias, High serum chloride Patient Disposition: Admitted As Inpatient Discharge Instructions Interventions: ED Discharge Assessment Last Done: 02/08/24 12:04 Discharge Problem: HTN (hypertension) Qualifiers: Hypertension type: unspecified Qualified Code(s): I10 - Essential (primary) hypertension
[2024-02-08] MEDS: OPTIRAY 320 125ml IV ONE (08:19)
[2024-02-08 08:23] LABS: Basophils # (auto) 0.03 K/uL (0.00-0.20); Basophils % (auto) 0.6 %; Eosinophils # (auto) 0.13 K/uL (0.00-0.50); Eosinophils % (auto) 2.7 %; Hematocrit (blood only) 44.4 % (42.0-52.0); Hemoglobin 14.6 g/dl (14.0-18.0); Immature Granulocytes # (auto) 0.03 K/uL (0.01-0.20); Immature Granulocytes % (auto) 0.6 %; Lymphocytes # (auto) 1.31 K/uL (1.20-3.40); Mean Corpuscular Hemoglobin 29.8 pg (25.0-34.0); Mean Corpuscular Hgb Conc 32.9 g/dL (32.0-36.0); Mean Corpuscular Volume 90.6 fL (80.0-100.0); Mean Platelet Volume 9.8 fL (9.4-12.4); Monocytes # (auto) 0.42 K/uL (0.11-0.59); Monocytes % (auto) 8.6 %; Neutrophils # (auto) 2.94 K/uL (1.40-6.50); Neutrophils % (auto) 60.5 %; Platelet Count 155 K/uL (130-400); RDW Coefficient of Variation 13.7 % (11.5-14.5); RDW Standard Deviation 44.9 fL (36.4-46.3); White Blood Count 4.86 K/ul (4.8-10.8)
[2024-02-08 08:35] LABS: Albumin Globulin Ratio 1.6 (0.9-2); Albumin Level 4.1 gm/dl (3.4-5.0); Bilirubin,Total 0.7 mg/dl (0.2-1.0); Calcium 8.6 mg/dl (8.6-10.3); Creatinine Clr Calc Pharmacy 82.7 ml/min; Est GFR (African American) 80.9 ml/min; Est GFR (Non-African American) 69.8 ml/min; Globulin 2.6 gm/dl (2.5-4.0); Total Protein 6.7 gm/dl (6.0-8.3)
[2024-02-08 08:40] LABS: Troponin I High Sensitivity 3.9 pg/ml (0-20)
[2024-02-08 08:46] LABS: Partial Thromboplastin Time 27 Seconds (21-31); Prothrombin Time 10.8 Seconds (9.0-12.0)
--- NOTE | 2024-02-08 08:52 | CT Scan Report ---
CT ANGIOGRAM OF THE NECK CLINICAL HISTORY: Neurological deficit. Stroke like symptoms. COMPARISON STUDY: No priors. TECHNIQUE: Following the IV administration of 120 of Optiray 320, CT angiogram of the neck was perfor med from the aortic arch to the skull base. Images are reviewed in the axial, sagittal, and coronal p lanes. 3-D MIPS images are created and assessed. IV contrast was administered without complication. A ll measurements were calculated based on NASCET criteria. A dose lowering technique was utilized adh ering to the principles of ALARA. FINDINGS: Thoracic aorta: Visualized portions of the thoracic aorta are normal in caliber. The aortic arch demo nstrates standard 3-vessel anatomy. Right carotid arterial system: The right common carotid artery is widely patent, as are the right int ernal and external carotid arteries. Left carotid arterial system: The left common carotid artery is widely patent, as are the left creative services intern al and external carotid arteries. Mild calcified plaque is seen in the carotid bulb. Vertebral arteries: The left vertebral artery is dominant and widely patent. The right vertebral laurie ry is diminutive and terminates as the PICA. Subclavian arteries: Widely patent bilaterally. Intracranial vasculature: The visualized intracranial vessels at the skull base appear patent. Athero sclerotic calcification is seen in the carotid bulbs. Jugular veins: Patent bilaterally. Brain parenchyma: The visualized brain parenchyma the skull base is within normal limits. Lung apices: Partially visualized upper lobe lung parenchyma appears clear. Soft tissues: The visualized pharyngeal soft tissues are normal in appearance noting angiographic pha se technique. The oropharyngeal airway appears widely patent. The thyroid gland is mildly atrophic. T he salivary glands are normal in appearance. No cervical lymphadenopathy is seen. Skeletal structures: The visualized calvarium at the skull base appears intact. The imaged cervical s pine is within normal limits. Sinuses and mastoids: There is mild mucosal thickening in the maxillary antra. A 1.3 cm retention cys t is seen on the left. There is a large left mastoid effusion. The right mastoid air cells are well p neumatized. IMPRESSION: Unremarkable CT angiogram of the neck. ACT 112: Negative or not required by law. Electronically signed by: Wolfgang Martins M.D. 02/08/2024 8:51 AM
--- NOTE | 2024-02-08 09:06 | CT Scan Report ---
CT angio head w con, CT head/brain wo con CLINICAL HISTORY: 58 years-old Male with neuro deficit, acute stroke suspected. Acute stroke like symptoms COMPARISON STUDY: CTA neck of same day, head CT 01/31/2023 TECHNIQUE: Unenhanced axial CT scan of the brain is performed. Subsequently, following the IV adminis tration of 120 cc of Optiray, CT angiogram of the brain was performed from the skull base to the vert ex. Images are reviewed in the axial, sagittal, and coronal planes. 3-D MIPS images are created and a ssessed. IV contrast was administered without complication. All measurements were obtained according to NASCET criteria. A dose lowering technique was utilized adhering to the principles of ALARA. CT DOSE: 931.85 mGy.cm FINDINGS: CT BRAIN: There is no acute intracranial hemorrhage, midline shift, hydrocephalus, intracranial mass, territori al ischemia or abnormal extra-axial collections. No abnormal intra-axial or extra-axial enhancement. Mastoid air cells and middle ear cavities are clear. No calvarial fracture. Polypoid mucosal thicken ing of the maxillary sinuses. CT ANGIOGRAM OF THE BRAIN: The imaged bilateral internal carotid arteries are patent. The bilateral anterior and middle cerebral arteries are also patent. Developmentally diminutive right vertebral artery terminating into the hig h gut. Dominant left vertebral artery is patent and unremarkable. Patent posterior cerebral arteries. There is no aneurysm, high-grade stenosis, or proximal branch occlusion identified. Dural sinuses ap pear patent. IMPRESSION: 1. No acute intracranial abnormality. 2. Unremarkable CTA of the head. ACT 112: Negative or not required by law. The above report was generated using voice recognition software. It may contain grammatical, syntax o r spelling errors. Electronically signed by: Janak Mederos M.D. 02/08/2024 9:04 AM
--- NOTE | 2024-02-08 10:53 | History & Physical Report ---
Date of Service February 08, 2024 Assessment & Plan (1) Facial numbness: (2) Left upper extremity numbness: (3) Hypertension: Plan: 58 year old male with history of hypertension, dyslipidemia, hypothyroidism, recent acute diverticulitis with perforation, s/p resection, colostomy, presenting today with L facial and upper arm numbness. LEFT FACIAL AND UPPER ARM NUMBNESS R/O TIA VS. ACUTE CVA CT head: no acute process CT angio head and neck: no significant stenosis Brain MRI, Echo ordered check A1c, Lipid profile ASA 81mg po started yesterday by PCP add Plavix 75mg po daily starting today already on Rosuvastatin Neurology consulted PT/OT eval HISTORY OF DM 2 not on medications at present last a1c 2021 5.9 check A1c HYPERTENSION on Losartan 100mg po daily - hold for now for permissive hypertension on Metoprolol succinate 25m HS- continue DYSLIPIDEMIA check lipid panel in AM HYPOTHYROIDISM on Lthyroxine 75mg po daily check TSH DEPRESSION continue usual medications DVT Prophylaxis SCDs Disposition lives at home plan of care discussed with patient in detail all questions answered he is understanding, agreeable, comfortable with the plan of care History of Present Illness Chief Complaint: L face numbness and weakness Primary Care Provider: Galen Kay 58 year old male with history of hypertension, dyslipidemia, hypothyroidism presenting today with L facial and upper arm numbness. Patient was admitted to [facility] in the end of November for a perforated diverticulitis, s/ colon resection and colostomy bag placement. Two days ago, patient presented to the ER for an episode for L facial and arm numbness which lasted for about 2-3 hours. Work up was negative and patient was subsequently discharged home. Yesterday, patient saw his PCP Dr. Kay for a follow up visit. Symptoms felt to be from a TIA, was prescribed with ASA 81mg daily and Metoprol succinate 25mg HS. He was scheduled to have a brain MRI as outpatient. This morning, around 7 am, after taking his morning medications, patient again developed L facial and arm numbness. No other neurologic deficits noted. He drove himself to the ER. At the ER, CT head: no acute process, CT angio head and neck: No significant stenosis. On exam, patient seen resting in bed, comfortable, not in distress. Still reports persistence of L lower face and upper arm numbness- "like Novocaine wearing off". No other new neurologic deficits. no chest pain, dyspnea, palpitations, dizziness Allergies Allergy/AdvReac Type Severity Reaction Status Date / Time No Known Allergies Allergy Verified 02/08/24 09:24 Home Medications Medication Instructions Recorded Confirmed Type valacyclovir 500 mg tablet 500 mg PO QPM 09/20/18 02/08/24 History (Valtrex) vortioxetine 5 mg tablet 5 mg PO QAM 06/21/19 02/08/24 History (Trintellix) emtricitabine 200 mg-tenofovir 1 tab PO QPM 09/18/20 02/08/24 History alafenamide fumarate 25 mg tablet (Descovy) omeprazole 20 mg capsule,delayed 20 mg PO DAILYBB 09/18/20 02/08/24 History release cholecalciferol (vitamin D3) 125 10,000 unit PO QPM 04/25/22 02/08/24 History mcg (5,000 unit) tablet (Vitamin D3) escitalopram oxalate 20 mg tablet 20 mg PO QAM 10/31/22 02/08/24 History (Lexapro) losartan 100 mg tablet 100 mg PO QAM 01/31/23 02/08/24 History trazodone 50 mg tablet 50 mg PO HS 12/22/23 02/08/24 History metoprolol succinate 25 mg 25 mg PO HS 02/08/24 02/08/24 History tablet,extended release 24 hr aspirin 325 mg tablet,delayed 325 mg PO HS #30 tabs 02/09/24 Rx release (Ecotrin) atorvastatin 80 mg tablet 80 mg PO QPM #30 tabs 02/09/24 Rx clopidogrel 75 mg tablet 75 mg PO QAM #20 tabs 02/09/24 Rx cyanocobalamin (vitamin B-12) 500 500 mcg PO QAM #30 tabs 02/09/24 Rx mcg tablet levothyroxine 150 mcg tablet 150 mcg PO Q2D #30 tabs 02/09/24 Rx Past Med/Surg History Problem List (Updated 02/08/24 @ 17:56 by Melanie Andrew MD) Stroke-like symptoms High serum chloride (Acute) Paresthesias (Acute) HTN (hypertension) (Acute) TIA (transient ischemic attack) (Acute) Left upper extremity numbness (Acute) Facial numbness (Acute) Hypertension (Acute) History of bladder stone (Acute) Hypercholesterolemia (Acute) Organic impotence (Acute) History of urinary frequency (Acute) Encounter for pre-operative examination Priapism, drug-induced (Acute) Sexual dysfunction Incontinence Medical History (Updated 02/08/24 @ 17:56 by Melanie Andrew MD) Abdominal pain Diverticulitis of colon with perforation Encounter for pre-operative examination Diverticulitis of both large and small intestine with perforation Arthritis Benign localized hyperplasia of prostate with urinary obstruction Diabetes mellitus Diverticulum of bladder Epididymitis Hypothyroidism BPH (benign prostatic hyperplasia) Urinary incontinence Diabetes mellitus, type 2 oral meds discontinued after weight loss; diet controlled Chronic back pain GERD (gastroesophageal reflux disease) Depression Anxiety Hyperlipidemia Hypertension Surgical History History of esophagogastroduodenoscopy (EGD) History of colonoscopy History of cardiac cath 2008-NO STENTS NEEDED-NO CARDIOLOGY History of carpal tunnel release R/L H/O foot surgery RIGHT SPUR H/O eye surgery MUSCLE History of cystoscopy multiple; cysto, injection of urethral bulking agent: 01/01/19: MAC sedation at [facility] Family History Sister Family history of diabetes mellitus Brother Family history of diabetes mellitus Other Diabetes mellitus, type 2 Social History Smoking Status: Never smoker Cigarettes Per Day: 0; Second Hand Exposure: No; Do You Dip or Chew Tobacco: No; Tobacco Cessation Education Requested by Patient: No Hx Alcohol Use: No Hx Substance Use: No Communication Ability: Effective Visual Impairment: No Limitations Or Assistant Required: No Beliefs That Will Affect Care: None Current Living Situation: Alone Other Information That Helps Us Care for You: No Feels Safe at Home: Yes Safety Concerns: Feels Safe At This Time Assistive Devices: None Review of Systems Review of Systems: all noted and negative except for above Physical Exam Physical Exam: General- oriented x 3, not in distress, speaks in sentences with no effort or accessory muscle use Head- atraumatic Eyes- PERRL, EOMI, anicteric ENT- oropharynx clear Neck- supple, no JVD, no adenopathy, no thyromegaly; carotids +2/2, no bruits appreciated Lungs- clear to auscultation bilaterally, no rales/wheezes Heart- normal rate, regular rhythm; no murmur, no gallop, no rub appreciated Abdomen- normal bowel sounds, nondistended, soft, nontender, no masses or hepatosplenomegaly Extremities- no pretibial edema, no calf tenderness; peripheral pulses intact Neuro- alert, oriented x 3; Left lower face sensation ~75%, otherwise CN 2-12 grossly intact; motor 5/5 bilaterally;L upper arm sensation 75% otherwise sensation 100% on all extremities; no other gross focal neurologic deficits Skin- warm & dry Results & Data Results & Data Vital Signs (Past 12 Hours) Vital Signs Temp Pulse Resp BP Pulse Ox O2 Del Method 02/08/24 09:23 65 02/08/24 07:41 36.8 C 56 L 18 161/90 H 99 Room Air all noted and reviewed including below Code Status & VTE Plan VTE Prophylaxis Plan VTE Prophylaxis will be ordered: Yes
[2024-02-08] MEDS: LORazepam 0.5 MG TAB PO STA (11:30)
[2024-02-08] MEDS ORDERED: PHARMACIST DISCHARGE MED REC CONSULT PRN (12:06)
[2024-02-08] MEDS: CLOPIDOGREL BISULFATE 75 MG TAB PO ONE (13:08)
--- NOTE | 2024-02-08 13:36 | Magnetic Resonance Report ---
Brain MRI WITHOUT CONTRAST HISTORY: L facial and arm numbness TECHNIQUE: Multiplanar multisequence MRI of the brain was performed without the use of contrast. COMPARISON STUDY: Head CT 02/08/2024. FINDINGS: There are no areas of restricted diffusion to suggest acute infarction. The midline structu res are intact. The left maxillary sinus retention cysts and a small left mastoid effusion. The right mastoid air cells are clear. The orbits are unremarkable. The ventricles and sulci are within normal limits for age. There is no mass, hematoma, midline shift. The major vascular flow-voids at the skul l base are well maintained. IMPRESSION: No acute intracranial abnormality. ACT 112: Negative or not required by law. Electronically signed by: Zohaib Vieyra M.D. 02/08/2024 1:33 PM
--- NOTE | 2024-02-08 13:38 | Electrocardiogram Report ---
Test Reason : Blood Pressure : / mmHG Vent. Rate : 065 BPM Atrial Rate : 065 BPM P-R Int : 140 ms QRS Dur : 096 ms QT Int : 428 ms P-R-T Axes : 062 008 014 degrees QTc Int : 445 ms Normal sinus rhythm Normal ECG When compared with ECG of 06-FEB-2024 20:46, Nonspecific T wave abnormality no longer evident in Anterior leads Confirmed by Jonah Lr ([id number]) on 02/08/2024 1:38:16 PM Referred By: Confirmed By:Lionel Lr
--- NOTE | 2024-02-08 17:55 | Neurology Consultation ---
Date of Consultation February 08, 2024 Assessment & Plan (1) Stroke-like symptoms: Symptoms are attributable to hypertensive encephalopathy, cannot exclude TIA. The patient has significant atherosclerotic disease interim extracranially with no flow-limiting stenosis, MRI of the brain shows no acute ischemic infarction, no significant chronic white matter changes. Plan Recommend dual antiplatelets with aspirin 325 mg, Plavix 75 mg and Atorvastatin 80 mg for 21 days. This can be followed by Aspirin 325 mg daily and Atorvastatin 80 mg daily. Risk factors modifications, with tight control of blood pressure, cholesterol levels. Hemoglobin A1c, etc. Telehealth Consultation Telehealth Information Telehealth Information: I performed this visit using a real-time telehealth connection between my location and the patients location ([facility]). After connecting through interactive tele-video, patient was identified by name and date of and/or wristband check.Patient (or authorized healthcare admissions representative) was informed that this was a telemedicine visit and it was being conducted confidentially over secure lines. My office door was closed and no one else was present in the room with me.Patient (or authorized healthcare admissions representative) provided consent to proceed with the visit, expressed an understanding of privacy and security of the telemedicine visit, and gave permission to have a hospital admissions representative in the room in order to assist with the visit and to conduct portions of the visit, as needed. I informed the pat ient (or authorized healthcare admissions representative) that I reviewed their record and presented the opportunity for them to ask any questions regarding the visit today. The patient agreed to participate. History of Present Illness Reason for Consultation: stroke-like symptoms Requesting Physician: Dr Singh Attending Physician: Issac Singh MD History of Present Illness The patient is a 58-year-old male patient with PMH of HTN, HLP, bladder stones, history of anxiety and depression who presented to the hospital reporting numbness affecting the left side of the face that happened 2 days ago it lasted for about 2 to 3 hours and then resolved, the patient was seen by his primary care doctor and was started on aspirin. This morning he woke up and checked his blood pressure which was 156/90, he felt numbness affecting the left side of the face and the arm this lasted for about 15 minutes and then improved. In the emergency room he was hypertensive, CT scan of the head was nonrevealing and the patient was with no focal neurological deficits. He tells me that his symptoms have resolved. And he felt like it was Novocain wearing off he did not have any gait d isturbance any visual changes no speech changes. Allergies Allergy/AdvReac Type Severity Reaction Status Date / Time No Known Allergies Allergy Verified 02/08/24 09:24 Home Medications Medication Instructions Recorded Confirmed Type levothyroxine 175 mcg tablet 175 mcg PO QAM 09/20/18 02/08/24 History rosuvastatin 40 mg tablet 40 mg PO QPM 09/20/18 02/08/24 History valacyclovir 500 mg tablet 500 mg PO QPM 09/20/18 02/08/24 History (Valtrex) vortioxetine 5 mg tablet 5 mg PO QAM 06/21/19 02/08/24 History (Trintellix) emtricitabine 200 mg-tenofovir 1 tab PO QPM 09/18/20 02/08/24 History alafenamide fumarate 25 mg tablet (Descovy) omeprazole 20 mg capsule,delayed 20 mg PO DAILYBB 09/18/20 02/08/24 History release cholecalciferol (vitamin D3) 125 10,000 unit PO QPM 04/25/22 02/08/24 History mcg (5,000 unit) tablet (Vitamin D3) escitalopram oxalate 20 mg tablet 20 mg PO QAM 10/31/22 02/08/24 History (Lexapro) losartan 100 mg tablet 100 mg PO QAM 01/31/23 02/08/24 History trazodone 50 mg tablet 50 mg PO HS 12/22/23 02/08/24 History aspirin 81 mg tablet,delayed 81 mg PO HS 02/08/24 02/08/24 History release metoprolol succinate 25 mg 25 mg PO HS 02/08/24 02/08/24 History tablet,extended release 24 hr Patient History Medical History (Updated 02/08/24 @ 17:56 by Melanie Andrew MD) Abdominal pain Diverticulitis of colon with perforation Encounter for pre-operative examination Diverticulitis of both large and small intestine with perforation Arthritis Benign localized hyperplasia of prostate with urinary obstruction Diabetes mellitus Diverticulum of bladder Epididymitis Hypothyroidism BPH (benign prostatic hyperplasia) Urinary incontinence Diabetes mellitus, type 2 oral meds discontinued after weight loss; diet controlled Chronic back pain GERD (gastroesophageal reflux disease) Depression Anxiety Hyperlipidemia Hypertension Surgical History History of esophagogastroduodenoscopy (EGD) History of colonoscopy History of cardiac cath 2008-NO STENTS NEEDED-NO CARDIOLOGY History of carpal tunnel release R/L H/O foot surgery RIGHT SPUR H/O eye surgery MUSCLE History of cystoscopy multiple; cysto, injection of urethral bulking agent: 01/01/19: MAC sedation at [facility] Family History Sister Family history of diabetes mellitus Brother Family history of diabetes mellitus Other Diabetes mellitus, type 2 Social History Smoking Status: Never smoker Cigarettes Per Day: 0; Second Hand Exposure: No; Do You Dip or Chew Tobacco: No; Tobacco Cessation Education Requested by Patient: No Hx Alcohol Use: No Hx Substance Use: No Preferred Language: Cantonese Mauritanian Communication Ability: Effective Visual Impairment: No Limitations Animal Herder Required: No Beliefs That Will Affect Care: None Current Living Situation: Alone Other Information That Helps Us Care for You: No Feels Safe at Home: Yes Safety Concerns: Feels Safe At This Time Assistive Devices: None Review of Systems Constitutional: Patient denies weight loss, fever, chills, and night sweats Eyes: Patient denies change in vision, tearing, pain, and redness ENT: Patient denies pain, bleeding, rhinorrhea, and dysphagia Cardiovascular: Patient denies chest pain, palpitation, dyspnea at rest, and dyspnea with exertion Respiratory: Patient denies shortness of breath, cough, wheezing, and productive cough GI: Patient denies reflux, pain, constipation, and diarrhea Skin: Patient denies rash, dryness, and itching Allergies/Immune System: Patient denies rhinorrhea, seasonal allergies, reaction to current MEDS, and joint swelling Endocrine: Patient denies weight loss, weight gain, temperature intolerance, and excessive thirst Neurological: All negative unless mentioned in the HPI Physical Exam General Constitutional: Appearance normally developed Head and face: normocephalic and atraumatic Eyes: no ptosis, no anisocoria, and no dysconjugate gaze Respiratory: normal effort Cardiovascular: regular rhythm and regular rate Abdomen: non distended Skin: no rashes, lesions, or ulcers noted Psychiatric: normal judgement and insight, normal mood, and normal affect NEUROLOGIC EXAMINATION: Mental Status:alert, oriented to time, place, person, normal recent memory, normal remote memory, normal attention span, normal concentration, normal language and normal fund of knowledge Cranial Nerves: CN 2 - no visual defect on confrontation and pupils round, equal, reactive to light CN 3, 4, 6 - extra-ocular movements intact and no nystagmus CN 5 - facial sensation intact CN 7 - no facial asymmetry CN 8 - intact hearing CN 9, 10 - palate symmetric, normal gag CN 11 - good shoulder shrug CN 12 - tongue midline MOTOR: Strength was at least antigravity throughout, Pronator drift was absent and There were no abnormal movements SENSATION: intact and symmetric to pinprick, light touch, vibration and joint position GAIT: stable, no ataxia and can perform tandem walking COORDINATION: no ataxia with finger to nose testing and heel to jonas testing REFLEXES: cannot assess over telemedicine NIH Stroke Scale: 1a. Level of Consciousness: alert = 0 1b. LOC Questions: (month, age): both correct = 0 1c. LOC Commands (open and close eyes, make fist and let go using non-paretic hand): obeys both correctly = 0 2. Best Gaze (eyes open and patient follows examiner's finger or face): normal = 0 3. Visual (visual threat or finger counting in each quadrant): no loss = 0 4. Facial Palsy (show teeth, raise eye brows and squeeze eyes shut, or grimace symmetry in a comatose patient): normal = 0 5a. Motor Arm (extend arm (palms down) to 90 degrees and score drift/movement (10 seconds) - Left: no drift = 0 5b. Motor Arm: (extend arm (palms down) to 90 degrees and score drift/movement (10 seconds) - Right: no drift = 0 6a. Motor Leg (elevate leg 30 degrees and score drift/ movement (5 seconds) - Left: no drift = 0 6b. Motor Leg (elevate leg 30 degrees and score drift/ movement (5 seconds) - Right: no drift = 0 7. Limb Ataxia (finger to nose, heel down jonas): absent = 0 8. Sensory (pin prick to face, arm, trunk and leg, compare side to side): normal = 0 9. Best Language: no aphasia = 0 10. Dysarthria (evaluate speech clarity by patient repeating listed words): normal articulation = 0 11. Extinction and Inattention: no neglect = 0 Total: 0 Results & Data Vital Signs (Past 12 Hours) Vital Signs Temp Pulse Pulse Resp BP BP Pulse Ox 02/08/24 16:45 02/08/24 16:44 54 L 02/08/24 15:05 36.4 C L 66 14 169/96 H 98 02/08/24 09:30 135/90 02/08/24 09:30 59 L 20 94 02/08/24 09:23 65 02/08/24 09:03 63 23 95 02/08/24 09:02 137/97 02/08/24 09:02 137/97 02/08/24 08:57 95 H 20 95 02/08/24 08:30 60 21 97 02/08/24 08:30 156/101 H 02/08/24 08:30 156/101 H 02/08/24 08:30 156/101 H 02/08/24 08:00 63 18 98 02/08/24 07:54 60 23 99 02/08/24 07:52 159/98 H 02/08/24 07:52 159/98 H 02/08/24 07:41 36.8 C 56 L 18 161/90 H 99 O2 Del Method 02/08/24 16:45 Room Air 02/08/24 16:44 02/08/24 15:05 Room Air 02/08/24 09:30 02/08/24 09:30 02/08/24 09:23 02/08/24 09:03 02/08/24 09:02 02/08/24 09:02 02/08/24 08:57 02/08/24 08:30 02/08/24 08:30 02/08/24 08:30 02/08/24 08:30 02/08/24 08:00 02/08/24 07:54 02/08/24 07:52 02/08/24 07:52 02/08/24 07:41 Room Air Laboratory Results Laboratory Results - last 24 hr 02/08/24 08:01 WBC 4.86 RBC 4.90 Hgb 14.6 Hct 44.4 MCV 90.6 MCH 29.8 MCHC 32.9 RDW Std Deviation 44.9 RDW Coeff of Alicia 13.7 Plt Count 155 MPV 9.8 Immature Gran % (Auto) 0.6 Neut % (Auto) 60.5 Lymph % (Auto) 27.0 [place] % (Auto) 8.6 Eos % (Auto) 2.7 Baso % (Auto) 0.6 Neut # (Auto) 2.94 Lymph # (Auto) 1.31 [place] # (Auto) 0.42 Eos # (Auto) 0.13 Baso # (Auto) 0.03 Immature Gran # (Auto) 0.03 PT 10.8 INR 1.0 APTT 27 PTT Ratio 1.0 Sodium 141 Potassium 4.0 Chloride 108 H Carbon Dioxide 27 Anion Gap 6 BUN 15 Creatinine 1.15 Est Cr Clr Drug Dosing 82.7 Est GFR ( Amer) 80.9 Est GFR (Non-Af Amer) 69.8 BUN/Creatinine Ratio 13.0 Glucose 115 H Calcium 8.6 Magnesium 2.0 Total Bilirubin 0.7 AST 70 H ALT 67 H Alkaline Phosphatase 65 Troponin I High Sens 3.9 Total Protein 6.7 Albumin 4.1 Globulin 2.6 Albumin/Globulin Ratio 1.[address] 02/08/24 07:52 CT angio head w con, CT head/brain wo con CLINICAL HISTORY: 58 years-old Male with neuro deficit, acute stroke suspected. Acute stroke like symptoms COMPARISON STUDY: CTA neck of same day, head CT 01/31/2023 TECHNIQUE: Unenhanced axial CT scan of the brain is performed. Subsequently, following the IV administration of 120 cc of Optiray, CT angiogram of the brain was performed from the skull base to the vertex. Images are reviewed in the axial, sagittal, and coronal planes. 3-D MIPS images are created and assessed. IV contrast was administered without complication. All measurements were obtained according to NASCET criteria. A dose lowering technique was utilized adhering to the principles of ALARA. CT DOSE: 931.85 mGy.cm FINDINGS: CT BRAIN: There is no acute intracranial hemorrhage, midline shift, hydrocephalus, intracranial mass, territorial ischemia or abnormal extra-axial collections. No abnormal intra-axial or extra-axial enhancement. Mastoid air cells and middle ear cavities are clear. No calvarial fracture. Polypoid mucosal thickening of the maxillary sinuses. CT ANGIOGRAM OF THE BRAIN: The imaged bilateral internal carotid arteries are patent. The bilateral anterior and middle cerebral arteries are also patent. Developmentally diminutive right vertebral artery terminating into the high gut. Dominant left vertebral artery is patent and unremarkable. Patent posterior cerebral arteries. There is no aneurysm, high-grade stenosis, or proximal branch occlusion identified. Dural sinuses appear patent. IMPRESSION: 1. No acute intracranial abnormality. 2. Unremarkable CTA of the head. ACT 112: Negative or not required by law. The above report was generated using voice recognition software. It may contain grammatical, syntax or spelling errors. Electronically signed by: Janak Mederos M.D. 02/08/2024 9:04 AM Head CTA 02/08/24 07:52 CT angio head w con, CT head/brain wo con CLINICAL HISTORY: 58 years-old Male with neuro deficit, acute stroke suspected. Acute stroke like symptoms COMPARISON STUDY: CTA neck of same day, head CT 01/31/2023 TECHNIQUE: Unenhanced axial CT scan of the brain is performed. Subsequently, following the IV administration of 120 cc of Optiray, CT angiogram of the brain was performed from the skull base to the vertex. Images are reviewed in the axial, sagittal, and coronal planes. 3-D MIPS images are created and assessed. IV contrast was administered without complication. All measurements were obtained according to NASCET criteria. A dose lowering technique was utilized adhering to the principles of ALARA. CT DOSE: 931.85 mGy.cm FINDINGS: CT BRAIN: There is no acute intracranial hemorrhage, midline shift, hydrocephalus, intracranial mass, territorial ischemia or abnormal extra-axial collections. No abnormal intra-axial or extra-axial enhancement. Mastoid air cells and middle ear cavities are clear. No calvarial fracture. Polypoid mucosal thickening of the maxillary sinuses. CT ANGIOGRAM OF THE BRAIN: The imaged bilateral internal carotid arteries are patent. The bilateral anterior and middle cerebral arteries are also patent. Developmentally diminutive right vertebral artery terminating into the high gut. Dominant left vertebral artery is patent and unremarkable. Patent posterior cerebral arteries. There is no aneurysm, high-grade stenosis, or proximal branch occlusion identified. Dural sinuses appear patent. IMPRESSION: 1. No acute intracranial abnormality. 2. Unremarkable CTA of the head. ACT 112: Negative or not required by law. The above report was generated using voice recognition software. It may contain grammatical, syntax or spelling errors. Electronically signed by: Janak Mederos M.D. 02/08/2024 9:04 AM Neck CTA 02/08/24 07:52 CT ANGIOGRAM OF THE NECK CLINICAL HISTORY: Neurological deficit. Stroke like symptoms. COMPARISON STUDY: No priors. TECHNIQUE: Following the IV administration of 120 of Optiray 320, CT angiogram of the neck was performed from the aortic arch to the skull base. Images are reviewed in the axial, sagittal, and coronal planes. 3-D MIPS images are created and assessed. IV contrast was administered without complication. All measurements were calculated based on NASCET criteria. A dose lowering technique was utilized adhering to the principles of ALARA. FINDINGS: Thoracic aorta: Visualized portions of the thoracic aorta are normal in caliber. The aortic arch demonstrates standard 3-vessel anatomy. Right carotid arterial system: The right common carotid artery is widely patent, as are the right internal and external carotid arteries. Left carotid arterial system: The left common carotid artery is widely patent, as are the left internal and external carotid arteries. Mild calcified plaque is seen in the carotid bulb. Vertebral arteries: The left vertebral artery is dominant and widely patent. The right vertebral artery is diminutive and terminates as the PICA. Subclavian arteries: Widely patent bilaterally. Intracranial vasculature: The visualized intracranial vessels at the skull base appear patent. Atherosclerotic calcification is seen in the carotid bulbs. Jugular veins: Patent bilaterally. Brain parenchyma: The visualized brain parenchyma the skull base is within normal limits. Lung apices: Partially visualized upper lobe lung parenchyma appears clear. Soft tissues: The visualized pharyngeal soft tissues are normal in appearance noting angiographic phase technique. The oropharyngeal airway appears widely patent. The thyroid gland is mildly atrophic. The salivary glands are normal in appearance. No cervical lymphadenopathy is seen. Skeletal structures: The visualized calvarium at the skull base appears intact. The imaged cervical spine is within normal limits. Sinuses and mastoids: There is mild mucosal thickening in the maxillary antra. A 1.3 cm retention cyst is seen on the left. There is a large left mastoid effusion. The right mastoid air cells are well pneumatized. IMPRESSION: Unremarkable CT angiogram of the neck. ACT 112: Negative or not required by law. Electronically signed by: Wolfgang Martins M.D. 02/08/2024 8:51 AM Brain MRI 02/08/24 09:47 Brain MRI WITHOUT CONTRAST HISTORY: L facial and arm numbness TECHNIQUE: Multiplanar multisequence MRI of the brain was performed without the use of contrast. COMPARISON STUDY: Head CT 02/08/2024. FINDINGS: There are no areas of restricted diffusion to suggest acute infarction. The midline structures are intact. The left maxillary sinus retention cysts and a small left mastoid effusion. The right mastoid air cells are clear. The orbits are unremarkable. The ventricles and sulci are within normal limits for age. There is no mass, hematoma, midline shift. The major vascular flow-voids at the skull base are well maintained. IMPRESSION: No acute intracranial abnormality. ACT 112: Negative or not required by law. Electronically signed by: Zohaib Vieyra M.D. 02/08/2024 1:33 PM Echocardiogram 02/08/2024, EF 60-65%, no PFO no ASA, no atrial enlargement Medications Administered Home Medications Medication Instructions Recorded Confirmed Last Taken levothyroxine 175 mcg tablet 175 mcg PO QAM 09/20/18 02/08/24 02/08/24 rosuvastatin 40 mg tablet 40 mg PO QPM 09/20/18 02/08/24 02/07/24 valacyclovir 500 mg tablet 500 mg PO QPM 09/20/18 02/08/24 02/07/24 (Valtrex) vortioxetine 5 mg tablet 5 mg PO QAM 06/21/19 02/08/24 02/08/24 (Trintellix) emtricitabine 200 mg-tenofovir 1 tab PO QPM 09/18/20 02/08/24 02/07/24 alafenamide fumarate 25 mg tablet (Descovy) omeprazole 20 mg capsule,delayed 20 mg PO DAILYBB 09/18/20 02/08/24 02/08/24 release cholecalciferol (vitamin D3) 125 10,000 unit PO QPM 04/25/22 02/08/24 02/07/24 mcg (5,000 unit) tablet (Vitamin D3) escitalopram oxalate 20 mg tablet 20 mg PO QAM 10/31/22 02/08/24 02/08/24 (Lexapro) losartan 100 mg tablet 100 mg PO QAM 01/31/23 02/08/24 02/08/24 trazodone 50 mg tablet 50 mg PO HS 12/22/23 02/08/24 02/07/24 aspirin 81 mg tablet,delayed 81 mg PO HS 07/06/2302/08/24 02/07/24 release metoprolol succinate 25 mg 25 mg PO HS 02/08/24 02/08/24 02/07/24 tablet,extended release 24 hr Active Medications Generic Name Dose Route Start Last Admin Trade Name Manuelq PRN Reason Stop Dose Admin Miscellaneous 1 each 02/08/24 16:00 02/08/24 17:13 Descovy--Order Awaiting Action N/A 03/09/24 15:59 Not Given QS MARY JANE Miscellaneous 1 each 02/08/24 16:00 02/08/24 17:13 Trintellix--Order Awaiting Action N/A 03/09/24 15:59 Not Given QS MARY JANE
[2024-02-08] MEDS ORDERED: hydrALAZINE HCL 20 MG/ML VIAL IV PRN (18:02)
[2024-02-08] MEDS: METOPROLOL SUCC 25MG EXT REL TAB PO SCH (19:55)
[2024-02-08] MEDS: ROSUVASTATIN CALCIUM 20 MG TAB PO SCH (19:55)
[2024-02-08] MEDS: ASPIRIN 81 MG ECTAB PO SCH (19:55)
[2024-02-08] MEDS: valACYclovir HCL 500 MG TABLET PO SCH (19:56)
[2024-02-08] MEDS: traZODone HCL 50 MG TAB PO SCH (19:56)
[2024-02-09] MEDS: PANTOprazole 40 MG TAB PO SCH (05:59)
[2024-02-09] MEDS: LEVOTHYROXINE SODIUM 175 MCG TABLET PO SCH (06:00)
[2024-02-09 07:38] LABS: Estimated Average Glucose 117 mg/dl; Hemoglobin A1C 5.7 % (4.5-5.6)
[2024-02-09 07:49] LABS: Basophils # (auto) 0.03 K/uL (0.00-0.20); Basophils % (auto) 0.7 %; Eosinophils # (auto) 0.16 K/uL (0.00-0.50); Hematocrit (blood only) 40.9 % (42.0-52.0); Hemoglobin 13.6 g/dl (14.0-18.0); Immature Granulocytes # (auto) 0.03 K/uL (0.01-0.20); Immature Granulocytes % (auto) 0.7 %; Lymphocytes # (auto) 1.22 K/uL (1.20-3.40); Lymphocytes % (auto) 30.1 %; Mean Corpuscular Hgb Conc 33.3 g/dL (32.0-36.0); Mean Corpuscular Volume 90.3 fL (80.0-100.0); Monocytes # (auto) 0.38 K/uL (0.11-0.59); Monocytes % (auto) 9.4 %; Neutrophils # (auto) 2.23 K/uL (1.40-6.50); Neutrophils % (auto) 55.1 %; Platelet Count 148 K/uL (130-400); RDW Coefficient of Variation 13.6 % (11.5-14.5); RDW Standard Deviation 45.1 fL (36.4-46.3); Red Blood Count 4.53 M/uL (4.70-6.10); White Blood Count 4.05 K/ul (4.8-10.8)
[2024-02-09 08:05] LABS: Calcium 8.4 mg/dl (8.6-10.3); Creatinine Clr Calc Pharmacy 73.4 ml/min; Est GFR (African American) 71.7 ml/min; Est GFR (Non-African American) 61.9 ml/min; Potassium 4.2 mmol/L (3.5-5.1)
--- NOTE | 2024-02-09 08:32 | Pharmacy Report ---
- Date of Service February 09, 2024 - Pharmacy CVA/TIA Medication Review Medications to Prevent Stroke handout has been added to the patients discharge packet. Antiplatelet(s) * Aspirin + clopidogrel x 21 days, then aspirin monotherapy Cholesterol * High intensity statin: atorvastatin 80 mg daily DVT Prophylaxis * SCD knee Therapeutic Anticoagulation * No history of Afib/Aflutter noted Type 2 Diabetes * Patient previously on antidiabetic oral medications, now diet-controlled only with HbA1c of 5.7%
[2024-02-09] MEDS: CLOPIDOGREL BISULFATE 75 MG TAB PO SCH (09:21)
[2024-02-09] MEDS: CYANOCOBALAMIN (B-12) 500 MCG TABLET PO SCH (10:54)
[2024-02-09] MEDS: ESCITALOPRAM OXALATE 20 MG TAB PO SCH (10:54)
--- NOTE | 2024-02-09 13:29 | Hospitalist Progress Note ---
Date of Service February 09, 2024 Assessment & Plan (1) Facial numbness: (2) Left upper extremity numbness: (3) Hypertension: Plan: 58 year old male with history of hypertension, dyslipidemia, hypothyroidism, recent acute diverticulitis with perforation, s/p resection, colostomy, presenting today with L facial and upper arm numbness. Strokelike symptoms DD: Cannot rule out TIA/secondary to uncontrolled hypertension --MRI Brain:No acute intracranial abnormality. --Head CTA:No acute intracranial abnormality. Unremarkable CTA of the head. --Neck CTA:Unremarkable CT angiogram of the neck. --ECHO: Left ventricle is normal in size. Mild concentric LVH. Left ventricle wall motion is normal. EF 60 to 65%. Grade 1 diastolic dysfunction. No valvular abnormality. Interatrial septum appears intact. -- HbA1c 5.7 --LDL 63 --Lyme Screen negative --Patient states that he was previously on aspirin 81 mg daily which was discontinued by his PCP and was started back on aspirin only 3 days ago. --Dual antiplatelet therapy with aspirin 325 mg, Plavix 75 mg daily for 3 weeks and then transition to aspirin 325 mg daily alone as recommended by neurology Continue Lipitor 80 mg daily Appreciate neurology input Evaluated by PT OT, speech therapy Plan to be discharged home today Needs follow-up with neurology on discharge Vitamin B12 deficiency Vitamin B-12 173 Started on B12 supplements Hypothyroidism Recent thyroid function test showed very low TSH Patient states being compliant with medications and no recent adjustment to his levothyroxine dosage Patient currently on levothyroxine 175 mg every other day Will decrease levothyroxine to 150 mcg every other day Advised to repeat thyroid function test in 4 to 6 weeks as outpatient DM II not on medications at present A1c 5.7 HTN Resume losartan Continue metoprolol Adjust antihypertensives as needed Monitor BP Dyslipidemia Continue statin Depression continue usual medications DVT Prophylaxis SCDs Disposition Home Admission and Anticipated Discharge Date Admission Date: February 08, 2024 Subjective Patient is seen and examined at bedside Left facial numbness, left upper extremity numbness resolved Denies any chest pain, dyspnea, nausea, vomiting, focal weakness, change in vision, dysarthria, dysphagia No other complaints Plan to be discharged home today Review of Systems Review of Systems: All systems reviewed & are unremarkable except as noted in Subjective Physical Exam Physical Exam: Physical Exam: Vitals signs as noted above General Appearance:Moderately built and nourished, no apparent distress Head: normocephalic, Atraumatic Eyes: normal inspection, EOMI Neck: supple, Trachea midline Respiratory/Chest: Normal breath sounds, CTA, No accessory muscle use Cardiovascular: S1, S2, No murmur Abdomen/GI:Soft, Non tender, +Colostomy, Bowel sounds present Extremities/Musculoskeletal:normal inspection, no edema Neurologic/Psych:AAOX3, grossly no focal neurological deficits Skin: normal color, warm Results & Data Results & Data Vital Signs (Past 12 Hours) Vital Signs Temp Pulse Pulse Resp BP Pulse Ox O2 Del Method 02/09/24 11:24 36.4 C L 60 18 141/80 H 95 Room Air 02/09/24 07:29 36.3 C L 61 18 120/80 94 Room Air 02/09/24 07:22 58 L 02/09/24 02:33 36.6 C 61 18 103/65 93 Room Air Laboratory Results Short CBC 02/09/24 Range/Units 07:22 WBC 4.05 L (4.8-10.8) K/ul Hgb 13.6 L (14.0-18.0) g/dl Hct 40.9 L (42.0-52.0) % Plt Count 148 (130-400) K/uL BMP 02/09/24 07:22 Sodium 140 Potassium 4.2 Chloride 109 H Carbon Dioxide 25 BUN 19 Creatinine 1.27 Glucose 104 H Calcium 8.4 L
[2024-02-09] MEDS ORDERED: STROKE PATIENT DISCHARGE STA (14:01)
--- NOTE | 2024-02-09 14:01 | Discharge Summary ---
Date of Service February 09, 2024 Admission HPI Per Admitting Provider 58 year old male with history of hypertension, dyslipidemia, hypothyroidism presenting today with L facial and upper arm numbness. Patient was admitted to [facility] in the end of November for a perforated diverticulitis, s/ colon resection and colostomy bag placement. Two days ago, patient presented to the ER for an episode for L facial and arm numbness which lasted for about 2-3 hours. Work up was negative and patient was subsequently discharged home. Yesterday, patient saw his PCP Dr. Kay for a follow up visit. Symptoms felt to be from a TIA, was prescribed with ASA 81mg daily and Metoprol succinate 25mg HS. He was scheduled to have a brain MRI as outpatient. This morning, around 7 am, after taking his morning medications, patient again developed L facial and arm numbness. No other neurologic deficits noted. He drove himself to the ER. At the ER, CT head: no acute process, CT angio head and neck: No significant stenosis. On exam, patient seen resting in bed, comfortable, not in distress. Still reports persistence of L lower face and upper arm numbness- "like Novocaine wearing off". No other new neurologic deficits. no chest pain, dyspnea, palpitations, dizziness Admission Exam Per Admitting Provider General- oriented x 3, not in distress, speaks in sentences with no effort or accessory muscle use Head- atraumatic Eyes- PERRL, EOMI, anicteric ENT- oropharynx clear Neck- supple, no JVD, no adenopathy, no thyromegaly; carotids +2/2, no bruits appreciated Lungs- clear to auscultation bilaterally, no rales/wheezes Heart- normal rate, regular rhythm; no murmur, no gallop, no rub appreciated Abdomen- normal bowel sounds, nondistended, soft, nontender, no masses or hepatosplenomegaly Extremities- no pretibial edema, no calf tenderness; peripheral pulses intact Neuro- alert, oriented x 3; Left lower face sensation ~75%, otherwise CN 2-12 grossly intact; motor 5/5 bilaterally;L upper arm sensation 75% otherwise sensation 100% on all extremities; no other gross focal neurologic deficits Skin- warm & dry Principal Diagnosis Strokelike symptoms possible transient ischemic attack Vitamin B12 deficiency Hypothyroidism Hypertension Discharge Data Allergies Allergy/AdvReac Type Severity Reaction Status Date / Time No Known Allergies Allergy Verified 02/08/24 09:24 Consultations 02/08/24 09:31 ED Decision to Admit Stat 02/08/24 09:47 Consult Neurology Routine Procedures Performed Laboratory Results WBC 4.05 K/ul (4.8-10.8) L 02/09/24 07:22 RBC 4.53 M/uL (4.70-6.10) L 02/09/24 07:22 Hgb 13.6 g/dl (14.0-18.0) L 02/09/24 07:22 Hct 40.9 % (42.0-52.0) L 02/09/24 07:22 MCV 90.3 fL (80.0-100.0) 02/09/24 07:22 MCH 30.0 pg (25.0-34.0) 02/09/24 07:22 MCHC 33.3 g/dL (32.0-36.0) 02/09/24 07:22 RDW Std Deviation 45.1 fL (36.4-46.3) 02/09/24 07:22 RDW Coeff of Alicia 13.6 % (11.5-14.5) 02/09/24 07:22 Plt Count 148 K/uL (130-400) 02/09/24 07:22 MPV 10.0 fL (9.4-12.4) 02/09/24 07:22 Immature Gran % (Auto) 0.7 % 02/09/24 07:22 Neut % (Auto) 55.1 % 02/09/24 07:22 Lymph % (Auto) 30.1 % 02/09/24 07:22 [place] % (Auto) 9.4 % 02/09/24 07:22 Eos % (Auto) 4.0 % 02/09/24 07:22 Baso % (Auto) 0.7 % 02/09/24 07:22 Neut # (Auto) 2.23 K/uL (1.40-6.50) 02/09/24 07:22 Lymph # (Auto) 1.22 K/uL (1.20-3.40) 02/09/24 07:22 [place] # (Auto) 0.38 K/uL (0.11-0.59) 02/09/24 07:22 Eos # (Auto) 0.16 K/uL (0.00-0.50) 02/09/24 07:22 Baso # (Auto) 0.03 K/uL (0.00-0.20) 02/09/24 07:22 Immature Gran # (Auto) 0.03 K/uL (0.01-0.20) 02/09/24 07:22 PT 10.8 Seconds (9.0-12.0) 02/08/24 08:01 INR 1.0 (0.9-1.1) 02/08/24 08:01 APTT 27 Seconds (21-31) 02/08/24 08:01 PTT Ratio 1.0 02/08/24 08:01 Sodium 140 mmol/L (136-145) 02/09/24 07:22 Potassium 4.2 mmol/L (3.5-5.1) 02/09/24 07:22 Chloride 109 mmol/L (98-107) H 02/09/24 07:22 Carbon Dioxide 25 mmol/L (21-32) 02/09/24 07:22 Anion Gap 6 (3-11) 02/09/24 07:22 BUN 19 mg/dl (6-23) 02/09/24 07:22 Creatinine 1.27 mg/dl (0.6-1.4) 02/09/24 07:22 Est Cr Clr Drug Dosing 73.4 ml/min 02/09/24 07:22 Est GFR ( Amer) 71.7 ml/min 02/09/24 07:22 Est GFR (Non-Af Amer) 61.9 ml/min 02/09/24 07:22 BUN/Creatinine Ratio 15.0 (10-20) 02/09/24 07:22 Glucose 104 mg/dl (70-99(Fasting)) H 02/09/24 07:22 Estimat Average Glucose 117 mg/dl 02/09/24 07:22 Hemoglobin A1c 5.7 % (4.5-5.6) H 02/09/24 07:22 Calcium 8.4 mg/dl (8.6-10.3) L 02/09/24 07:22 Magnesium 2.0 mg/dl (1.7-2.4) 02/08/24 08:01 Total Bilirubin 0.7 mg/dl (0.2-1.0) 02/08/24 08:01 AST 70 U/L (13-39) H 02/08/24 08:01 ALT 67 U/L (7-52) H 02/08/24 08:01 Alkaline Phosphatase 65 U/L (34-104) 02/08/24 08:01 Troponin I High Sens 3.9 pg/ml (0-20) 02/08/24 08:01 Total Protein 6.7 gm/dl (6.0-8.3) 02/08/24 08:01 Albumin 4.1 gm/dl (3.4-5.0) 02/08/24 08:01 Globulin 2.6 gm/dl (2.5-4.0) 02/08/24 08:01 Albumin/Globulin Ratio 1.6 (0.9-2) 02/08/24 08:01 Triglycerides 210 mg/dl (0-150) H 02/09/24 07:22 Cholesterol 140 mg/dl (0-200) 02/09/24 07:22 LDL Cholesterol, Calc 63 mg/dl 02/09/24 07:22 VLDL Cholesterol, Calc 42 mg/dl (0-30) H 02/09/24 07:22 HDL Cholesterol 35 mg/dl 02/09/24 07:22 Cholesterol/HDL Ratio 4.0 (0-5) 02/09/24 07:22 Vitamin B12 173 pg/ml (180-914) L 02/09/24 07:22 Lyme Disease Screen Negative (Negative) 02/09/24 08:[address] 02/08/24 07:52 CT angio head w con, CT head/brain wo con CLINICAL HISTORY: 58 years-old Male with neuro deficit, acute stroke suspected. Acute stroke like symptoms COMPARISON STUDY: CTA neck of same day, head CT 01/31/2023 TECHNIQUE: Unenhanced axial CT scan of the brain is performed. Subsequently, following the IV administration of 120 cc of Optiray, CT angiogram of the brain was performed from the skull base to the vertex. Images are reviewed in the axial, sagittal, and coronal planes. 3-D MIPS images are created and assessed. IV contrast was administered without complication. All measurements were obtained according to NASCET criteria. A dose lowering technique was utilized adhering to the principles of ALARA. CT DOSE: 931.85 mGy.cm FINDINGS: CT BRAIN: There is no acute intracranial hemorrhage, midline shift, hydrocephalus, intracranial mass, territorial ischemia or abnormal extra-axial collections. No abnormal intra-axial or extra-axial enhancement. Mastoid air cells and middle ear cavities are clear. No calvarial fracture. Polypoid mucosal thickening of the maxillary sinuses. CT ANGIOGRAM OF THE BRAIN: The imaged bilateral internal carotid arteries are patent. The bilateral anterior and middle cerebral arteries are also patent. Developmentally d iminutive right vertebral artery terminating into the high gut. Dominant left vertebral artery is patent and unremarkable. Patent posterior cerebral arteries. There is no aneurysm, high-grade stenosis, or proximal branch occlusion identified. Dural sinuses appear patent. IMPRESSION: 1. No acute intracranial abnormality. 2. Unremarkable CTA of the head. ACT 112: Negative or not required by law. The above report was generated using voice recognition software. It may contain grammatical, syntax or spelling errors. Electronically signed by: Janak Mederos M.D. 02/08/2024 9:04 AM Head CTA 02/08/24 07:52 CT angio head w con, CT head/brain wo con CLINICAL HISTORY: 58 years-old Male with neuro deficit, acute stroke suspected. Acute stroke like symptoms COMPARISON STUDY: CTA neck of same day, head CT 01/31/2023 TECHNIQUE: Unenhanced axial CT scan of the brain is performed. Subsequently, following the IV administration of 120 cc of Optiray, CT angiogram of the brain was performed from the skull base to the vertex. Images are reviewed in the axial, sagittal, and coronal planes. 3-D MIPS images are created and assessed. IV contrast was administered without complication. All measurements were obtained according to NASCET criteria. A dose lowering technique was utilized adhering to the principles of ALARA. CT DOSE: 931.85 mGy.cm FINDINGS: CT BRAIN: There is no acute intracranial hemorrhage, midline shift, hydrocephalus, intracranial mass, territorial ischemia or abnormal extra-axial collections. No abnormal intra-axial or extra-axial enhancement. Mastoid air cells and middle ear cavities are clear. No calvarial fracture. Polypoid mucosal thickening of the maxillary sinuses. CT ANGIOGRAM OF THE BRAIN: The imaged bilateral internal carotid arteries are patent. The bilateral anterior and middle cerebral arteries are also patent. Developmentally diminutive right vertebral artery terminating into the high gut. Dominant left vertebral artery is patent and unremarkable. Patent posterior cerebral arteries. There is no aneurysm, high-grade stenosis, or proximal branch occlusion identified. Dural sinuses appear patent. IMPRESSION: 1. No acute intracranial abnormality. 2. Unremarkable CTA of the head. ACT 112: Negative or not required by law. The above report was generated using voice recognition software. It may contain grammatical, syntax or spelling errors. Electronically signed by: Janak Mederos M.D. 02/08/2024 9:04 AM Neck CTA 02/08/24 07:52 CT ANGIOGRAM OF THE NECK CLINICAL HISTORY: Neurological deficit. Stroke like symptoms. COMPARISON STUDY: No priors. TECHNIQUE: Following the IV administration of 120 of Optiray 320, CT angiogram of the neck was performed from the aortic arch to the skull base. Images are reviewed in the axial, sagittal, and coronal planes. 3-D MIPS images are created and assessed. IV contrast was administered without complication. All measurements were calculated based on NASCET criteria. A dose lowering technique was utilized adhering to the principles of ALARA. FINDINGS: Thoracic aorta: Visualized portions of the thoracic aorta are normal in caliber. The aortic arch demonstrates standard 3-vessel anatomy. Right carotid arterial system: The right common carotid artery is widely patent, as are the right internal and external carotid arteries. Left carotid arterial system: The left common carotid artery is widely patent, as are the left internal and external carotid arteries. Mild calcified plaque is seen in the carotid bulb. Vertebral arteries: The left vertebral artery is dominant and widely patent. The right vertebral artery is diminutive and terminates as the PICA. Subclavian arteries: Widely patent bilaterally. Intracranial vasculature: The visualized intracranial vessels at the skull base appear patent. Atherosclerotic calcification is seen in the carotid bulbs. Jugular veins: Patent bilaterally. Brain parenchyma: The visualized brain parenchyma the skull base is within normal limits. Lung apices: Partially visualized upper lobe lung parenchyma appears clear. Soft tissues: The visualized pharyngeal soft tissues are normal in appearance noting angiographic phase technique. The oropharyngeal airway appears widely patent. The thyroid gland is mildly atrophic. The salivary glands are normal in appearance. No cervical lymphadenopathy is seen. Skeletal structures: The visualized calvarium at the skull base appears intact. The imaged cervical spine is within normal limits. Sinuses and mastoids: There is mild mucosal thickening in the maxillary antra. A 1.3 cm retention cyst is seen on the left. There is a large left mastoid effusion. The right mastoid air cells are well pneumatized. IMPRESSION: Unremarkable CT angiogram of the neck. ACT 112: Negative or not required by law. Electronically signed by: Wolfgang Martins M.D. 02/08/2024 8:51 AM Brain MRI 02/08/24 09:47 Brain MRI WITHOUT CONTRAST HISTORY: L facial and arm numbness TECHNIQUE: Multiplanar multisequence MRI of the brain was performed without the use of contrast. COMPARISON STUDY: Head CT 02/08/2024. FINDINGS: There are no areas of restricted diffusion to suggest acute infarction. The midline structures are intact. The left maxillary sinus retention cysts and a small left mastoid effusion. The right mastoid air cells are clear. The orbits are unremarkable. The ventricles and sulci are within normal limits for age. There is no mass, hematoma, midline shift. The major vascular flow-voids at the skull base are well maintained. IMPRESSION: No acute intracranial abnormality. ACT 112: Negative or not required by law. Electronically signed by: Zohaib Vieyra M.D. 02/08/2024 1:33 PM Ordered Studies 02/08/24 07:52 CT angio head w con Stat CT angio neck with con Stat CT head/brain wo con Stat 02/08/24 09:47 MRI Brain [MR brain wo con] Stat Hospital Course (1) Facial numbness: (2) Left upper extremity numbness: (3) Hypertension: 58 year old male with history of hypertension, dyslipidemia, hypothyroidism, recent acute diverticulitis with perforation, s/p resection, colostomy, pres enting today with L facial and upper arm numbness. Strokelike symptoms DD: Cannot rule out TIA/secondary to uncontrolled hypertension --MRI Brain:No acute intracranial abnormality. --Head CTA:No acute intracranial abnormality. Unremarkable CTA of the head. --Neck CTA:Unremarkable CT angiogram of the neck. --ECHO: Left ventricle is normal in size. Mild concentric LVH. Left ventricle wall motion is normal. EF 60 to 65%. Grade 1 diastolic dysfunction. No valvular abnormality. Interatrial septum appears intact. -- HbA1c 5.7 --LDL 63 --Lyme Screen negative --Patient states that he was previously on aspirin 81 mg daily which was discontinued by his PCP and was started back on aspirin only 3 days ago. --Dual antiplatelet therapy with aspirin 325 mg, Plavix 75 mg daily for 3 weeks and then transition to aspirin 325 mg daily alone as recommended by neurology Continue Lipitor 80 mg daily Appreciate neurology input Evaluated by PT OT, speech therapy Plan to be discharged home today Needs follow-up with neurology on discharge Vitamin B12 deficiency Vitamin B-12 173 Started on B12 supplements Hypothyroidism Recent thyroid function test showed very low TSH Patient states being compliant with medications and no recent adjustment to his levothyroxine dosage Patient currently on levothyroxine 175 mg every other day Will decrease levothyroxine to 150 mcg every other day Advised to repeat thyroid function test in 4 to 6 weeks as outpatient DM II not on medications at present A1c 5.7 HTN Resume losartan Continue metoprolol Adjust antihypertensives as needed Monitor BP Dyslipidemia Continue statin Depression continue usual medications DVT Prophylaxis SCDs Disposition Home Total Time Total Time Spent Total Time Spent (In Minutes): 58 minutes Discharge Plan Discharge Items Patient Disposition: Home - Self-Care Reason For Visit: STROKE LIKE SYMPTOMS Discharge Diagnosis: Strokelike symptoms possible transient ischemic attack Vitamin B12 deficiency Hypothyroidism Hypertension Activity: Per Instructions section Exercise/Sports: Gradually increase as tolerated Non-emergency contact: Primary Care Provider and Neurologist Call non-emergency contact if: you have any medication questions, your symptoms worsen, your pain is concerning for you and you have a fever Follow-up/Referrals: Galen Kay [Primary Care Provider] - (Dr Kay's office is aware of your discharge, and will contact you for a follow up appointment. ) Dena Martinez PA-C [Physician Testing And Regulating Technician] - (Date & Time 03/01/2024 11:20 AM Provider Dena Martinez PA-C Department Neurology [facility] ) Diet: Heart Healthy Addtl Attending Provider Instructions: Follow-up with your primary care physician Dr. Kay and your neurologist Warren Martinez PA-C as scheduled --Take aspirin 325 mg, Plavix 75 mg daily for 3 weeks and then transition to aspirin 325 mg daily alone as recommended by neurology -- Get repeat thyroid function test, vitamin B12 levels in 3 to 4 weeks and discuss with your physician for further adjustment of medications as needed --Monitor your blood pressure regularly at home. Discuss with your physician for medication adjustment as needed Seek immediate medical attention if your symptoms reoccur or worsen Please take all medications as instructed on discharge list below. Please call if you have any questions or problems. You can reach a [facility] hospitalist on duty at [facility] 24 hours a day by calling [phone] Risk Factors for Stroke: You can reduce your chances of stroke by working with your medical provider to adopt a healthy lifestyle. Some specific ways to lower your chance of stroke are: * If you are a smoker, now is the time to stop smoking cigarettes * If you are diabetic, improve the control of your blood sugars * Avoid excessive amounts of alcohol * Control high blood pressure * Lose weight if you are overweight * Be sure to lead an active lifestyle * Eat a healthy diet low in salt, cholesterol and fat You should know about other risk factors for stroke that you are unable to control. These include: * Age 55 years or older * Male gender * Certain racial groups: , or / * Family History of Stroke, Mini stroke or Heart Attack * Sickle Cell Disease Follow Up: It is important for you to keep your follow up appointments with your medical provider. Who to Call and When: Medical Emergencies: Call 911 immediately if you experience any of the following warning signs and symptoms of Stroke: * Sudden numbness or weakness of the face, arm or leg, especially on one side of the body * Sudden confusion, trouble speaking or understanding * Sudden trouble seeing in one or both eyes * Sudden trouble walking, dizziness, loss of balance or coordination * Sudden severe headache with no cause Do not delay calling 911 if you experience any warning signs or symptoms of a stroke. Delay in seeking medical attention may affect what treatments can be given to you. . Pending Studies at Discharge: No Stand-Alone Forms: My [facility], Work/School Release, Smoking Cessation, Medications to Prevent Stroke Medications and DC Order Prescriptions: New clopidogrel 75 mg Tablet 75 mg PO QAM Qty: 20 0RF atorvastatin 80 mg tablet 80 mg PO QPM Qty: 30 1RF cyanocobalamin (vitamin B-12) 500 mcg Tablet 500 mcg PO QAM Qty: 30 0RF aspirin [Ecotrin] 325 mg Tablet,Delayed Release (Dr/Ec) 325 mg PO HS Qty: 30 1RF levothyroxine 150 mcg capsule 150 mcg PO Q2D Qty: 30 0RF Continued escitalopram oxalate [Lexapro] 20 mg tablet 20 mg PO QAM valacyclovir [Valtrex] 500 mg Tablet 500 mg PO QPM cholecalciferol (vitamin D3) [Vitamin D3] 125 mcg (5,000 unit) tablet 10,000 unit PO QPM Trintellix 5 mg Tablet 5 mg PO QAM omeprazole 20 mg Capsule,Delayed Release(Dr/Ec) 20 mg PO DAILYBB Descovy 200-25 mg Tablet 1 tab PO QPM losartan 100 mg Tablet 100 mg PO QAM trazodone 50 mg tablet 50 mg PO HS metoprolol succinate 25 mg Tablet Extended Release 24 Hr 25 mg PO HS Rx Instructions: Pt just started this medication on 02/07/24 Discontinued levothyroxine 175 mcg Tablet 175 mcg PO Q2D rosuvastatin 40 mg Tablet 40 mg PO QPM aspirin 81 mg Tablet,Delayed Release (Dr/Ec) 81 mg PO HS Discharge Orders: Discharge Order (Routine); Ordered 02/09/24 Ordered By: Corey Llanos Admission Data Admit Date/Time: 02/08/24 09:47 Attending Provider: Corey Llanos Admit Provider: Issac Singh Primary Care Provider: Galen Kay Other Providers: Dena Martinez; Scott Montana; Dena Bryant; Grant Khalil; Kota Monteiro; Abhinav Velarde; Shankar Thomas; Brooklynn Silver; Vincent Calderon; Zeeshan Serrano; Melanie Mosquera; Tiburcio Lange; Rahel Solomon; Tori Esparza; Shankar Cohen; Issac Singh
[2024-02-09] MEDS: LOSARTAN POTASSIUM 50 MG TAB PO SCH (14:24)
[2024-02-09] MEDS ORDERED: ATORVASTATIN 40 MG TAB PO SCH (21:00)
[2024-02-09] MEDS ORDERED: ASPIRIN 325 MG ECTAB PO SCH (21:00)
--- NOTE | 2024-02-14 09:24 | Pharmacy Report ---
Pharmacist Stroke Counseling - Date of Service February 14, 2024 - Scope: Pharmacy has been consulted to provide medication discharge counseling for this patient admitted with transient ischemic attack as per the Pharmacist Discharge Counseling for Stroke Patients Protocol. - Medications on Discharge: Home Medications Medication Instructions Recorded Confirmed valacyclovir 500 mg tablet 500 mg PO QPM 09/20/18 02/08/24 (Valtrex) vortioxetine 5 mg tablet 5 mg PO QAM 06/21/19 02/08/24 (Trintellix) emtricitabine 200 mg-tenofovir 1 tab PO QPM 09/18/20 02/08/24 alafenamide fumarate 25 mg tablet (Descovy) omeprazole 20 mg capsule,delayed 20 mg PO DAILYBB 09/18/20 02/08/24 release cholecalciferol (vitamin D3) 125 10,000 unit PO QPM 04/25/22 02/08/24 mcg (5,000 unit) tablet (Vitamin D3) escitalopram oxalate 20 mg tablet 20 mg PO QAM 10/31/22 02/08/24 (Lexapro) losartan 100 mg tablet 100 mg PO QAM 01/31/23 02/08/24 trazodone 50 mg tablet 50 mg PO HS 12/22/23 02/08/24 metoprolol succinate 25 mg 25 mg PO HS 02/08/24 02/08/24 tablet,extended release 24 hr New Rx's Medication Instructions Recorded aspirin 325 mg tablet,delayed 325 mg PO HS #30 tabs 02/09/24 release (Ecotrin) atorvastatin 80 mg tablet 80 mg PO QPM #30 tabs 02/09/24 clopidogrel 75 mg tablet 75 mg PO QAM #20 tabs 02/09/24 cyanocobalamin (vitamin B-12) 500 500 mcg PO QAM #30 tabs 02/09/24 mcg tablet levothyroxine 150 mcg tablet 150 mcg PO Q2D #30 tabs 02/09/24 - Action: The above medications, specifically ones for stroke treatment/prophylaxis, have been reviewed in detail with the patient and/or patient financial representative(s) prior to discharge. This includes indication, common adverse reactions, drug interactions, and medication administration. Medication counseling has been employed using the teach-back method to ensure understanding. - Outcome: The patient and/or patient financial representative(s) have demonstrated understanding of the medications. Thank you for allowing pharmacy to be involved in the care of this patient. Please call [phone] with any additional questions
== END 2024-02-09 15:38 | disposition home or self-care (01) | DRG 78 ==
LOC: ED 07:38 → SUATTDRO 09:47 → INTOOBSV 09:47 → EDINP 09:47 → 2S 14:53